=== PATIENT | male | born 1960 | race African-American/Black ===

== ENCOUNTER 2019-02-14 12:44 | Inpatient (IN) | payer OTHER ==
[2019-02-14 13:16] VITALS: BMI 22.4
--- NOTE | 2019-02-14 14:08 | HP ---
COWS - Scale Resting Pulse: 0= [place] 80 or Below Sweatin= Chills/Flushing Restless Observation: 1= Difficult to Sit Still Pupil Size: 1= Pupils >than Normal Bone or Joint Aches: 2= Severe Diffuse Aches Runny Nose/ Eye Tearin= Runny Nose/Eyes GI Upset > 30mins: 2= Nausea/Diarrhea Tremor Observation: 2= Slight Tremor Visible Yawning Observation: 1= 1-2x During Session Anxiety or Irritability: 2=Irritable/Anxious Goose Flesh Skin: 0=Smooth Skin COWS Score: 14 CIWA Score Nausea/Vomitin Muscle Tremors: 2 Anxiety: 3 Agitation: 2 Paroxysmal Sweats: 1-Minimal Palms Moist Orientation: 0-Oriented Tacttile Disturbances: 1-Very Mild Itch/Numbness Auditory Disturbances: 0-None Visual Disturbances: 1-Very Mild Sensitivity Headache: 2-Mild CIWA-Ar Total Score: 14 - Admission Criteria OASAS Guidelines: Admission for Medically Managed Detox: Requires at least one of the followin. CIWA greater than 12 2. Seizures within the past 24 hours 3. Delirium tremens within the past 24 hours 4. Hallucinations within the past 24 hours 5. Acute intervention needed for co occurring medical disorder 6. Acute intervention needed for co occurring psychiatric disorder 7. Severe withdrawal that cannot be handled at a lower level of care (continued vomiting, continued diarrhea, abnormal vital signs) requiring intravenous medication and/or fluids 8. Admitting History and Physical - Admission Chief Complaint: i need help to stop using heroin,alcohol,cocaine and marijuana History of Present Illness: this 58 years old male with heroin,alcohol,cocaine and marijuana dependence seeking detox denied seizure denied syncope weight loss History Source: Patient Limitations to Obtaining History: No Limitations - Past Medical History Gastrointestinal: Yes: GERD Heme/Onc: Yes: Cancer (of prostate [id number] ,treated with seeding and radiation) Musculoskeletal: Yes: Other (right hip arthritis ambulation with cane) - Past Surgical History Additional Past Surgical History: cancer of prostate - Smoking History Smoking history: Current every day smoker Have you smoked in the past 12 months: Yes Aproximately how many cigarettes per day: 10 - Alcohol/Substance Use Hx Alcohol Use: Yes History of Substance Use: reports: Heroin - Social History Usual Living Arrangement: Yes: Other (homeless) Occupation: un employed History of Recent Travel: No Admission ROS BHS - HPI Chief Complaint: i need help to stop using heroin,alcohol,cocaine and marijuana abused Allergies/Adverse Reactions: Allergies Allergy/AdvReac Type Severity Reaction Status Date / Time No Known Allergies Allergy Verified 02/14/19 13:06 History of Present Illness: this 58 years old male with heroin,alcohol dependence,also cocaine and marijuana abused,seeking detox,withdrawal symptom [place] seizure denied syncope ca prostate treated with seeding and radiation 2012 weight loss arthritis of right hip longest sobriety 3 and half year homeless unemployed for rehab after detox Exam Limitations: No Limitations - Ebola screening Have you traveled outside of the country in the last 21 days: No Have you had contact with anyone from an Ebola affected area: No Do you have a fever: No - Review of Systems Constitutional: Chills, Loss of Appetite, Malaise, Night Sweats, Changes in sleep, Unintentional Wgt. Loss EENT: reports: Tearing, Nose Congestion Respiratory: reports: No Symptoms reported Cardiac: reports: No Symptoms Reported GI: reports: Diarrhea, Nausea, Indigestion : reports: Other (cancer of prostate) Musculoskeletal: reports: Back Pain, Muscle Pain Integumentary: reports: Dryness Neuro: reports: Headache, Tremors Endocrine: reports: No Symptoms Reported Hematology: reports: No Symptoms Reported Psychiatric: reports: No Sypmtoms Reported, Judgement Intact, Mood/Affect Appropiate, Orientated x3 Other Systems: Reviewed and Negative Patient History - Patient Medical History Hx Anemia: No Hx Asthma: No Hx Chronic Obstructive Pulmonary Disease (COPD): No Hx Cancer: Yes (ca prostate post seeding and adiation on remission since 2012) Hx Cardiac Disorders: No Hx Congestive Heart Failure: No Hx Hypertension: No Hx Hypercholesterolemia: No Hx Pacemaker: No HX Cerebrovascular Accident: Yes Hx Seizures: No Hx Dementia: No Hx Diabetes: Yes (no med) Hx Gastrointestinal Disorders: No Hx Liver Disease: No Hx Genitourinary Disorders: No Hx Sexually Transmitted Disorders: No Hx Renal Disease (ESRD): No Hx Thyroid Disease: No Hx Human Immunodeficiency Virus (HIV): No (since 2015 negative) Hx Hepatitis C: No Hx Depression: Yes (no med) Hx Suicide Attempt: No Hx Bipolar Disorder: No Hx Schizophrenia: No Other Medical History: no sicidal,no homicidal,arthritis of rt hip ambulation with cane - Patient Surgical History Past Surgical History: No - PPD History Previous Implant?: Yes Documented Results: Positive w/o proof Implanted On Prior R Admission?: No PPD to be Administered?: No - Smoking Cessation Smoking history: Current every day smoker Have you smoked in the past 12 months: Yes Aproximately how many cigarettes per day: 20 Cigars Per Day: 0 Hx Chewing Tobacco Use: No Initiated information on smoking cessation: Yes 'Breaking Loose' booklet given: 02/14/19 - Substance & Tx. History Hx Alcohol Use: Yes Hx Substance Use: Yes Substance Use Type: Alcohol, Cocaine, Heroin, Tranquilizers Hx Substance Use Treatment: Yes (2008 [facility]) - Substances abused Alcohol Substance route: Oral Frequency: Daily Amount used: 1 pint of whiskey & 6 pk beer Age of first use: 58 Date of last use: 02/12/19 Heroin Substance route: Inhalation Frequency: Daily Amount used: 10bags Age of first use: 18 Date of last use: 02/12/19 Cocaine Substance route: Inhalation Frequency: 1-3 times last 30 days Amount used: 100$ Age of first use: 48 Date of last use: 02/12/19 Marijuana/Hashish Substance route: Smoking Frequency: 1-2 times per week Amount used: 10$ Age of first use: 18 Date of last use: 02/13/19 Admission Physical Exam BHS - Vital Signs Vital Signs: Vital Signs - 24 hr 02/14/19 13:05 Temperature 98.0 F Pulse Rate 71 Respiratory 20 Rate Blood Pressure 114/69 - Physical General Appearance: Yes: Moderate Distress, Tremorous, Irritable, Sweating, Anxious HEENTM: Yes: Normal ENT Inspection, ALEX, Pharynx Normal Respiratory: Yes: Lungs Clear, Normal Breath Sounds, No Respiratory Distress Neck: Yes: Within Normal Limits, Supple, Trachea in good position Breast: Yes: Within Normal Limits Cardiology: Yes: Within Normal Limits, Regular Rhythm, Regular Rate, S1, S2 Abdominal: Yes: Within Normal Limits, Normal Bowel Sounds, Non Tender, Flat, Soft Genitourinary: Yes: Within Normal Limits, Pain (history of cancer of prostate) Back: Yes: Muscle Spasm Musculoskeletal: Yes: Back pain, Muscle Pain Extremities: Yes: Tremors (arthritis if righ thip) Neurological: Yes: superintendent of generation II-XII NML intact, Fully Oriented, Alert, Motor Strength 5/5 Integumentary: Yes: Dry Lymphatic: Yes: Within Normal Limits - Diagnostic (1) Opioid dependence with withdrawal Current Visit: Yes Status: Acute (2) Alcohol dependence with uncomplicated withdrawal Current Visit: Yes Status: Acute (3) CA of prostate Current Visit: Yes Status: Acute (4) CVA (cerebral vascular accident) Current Visit: Yes Status: Acute (5) DM2 (diabetes mellitus, type 2) Current Visit: Yes Status: Acute (6) Arthritis of right hip Current Visit: Yes Status: Acute (7) Use of cane as ambulatory aid Current Visit: Yes Status: Acute (8) Weight loss Current Visit: Yes Status: Acute (9) Depression Current Visit: Yes Status: Acute Cleared for Admission S - Detox or Rehab [facility] Level of Care: Medically Managed Detox Regimen/Protocol: Methadone/Librium Breathalyzer - Breathalyzer Breathalyzer: 0 Urine Drug Screen - Test Device Lot number: [id number] Expiration date: 09/17/20 - Control Is test valid?: Yes - Results Drug screen NEGATIVE: No Urine drug screen results: THC-Marijuana, DALJIT-Cocaine, MOP-Opiates Inpatient Rehab Admission - Rehab Decision to Admit Inpatient rehab admission?: No
[2019-02-14] MEDS ORDERED: METHOCARBAMOL 500 MG TABLET PO PRN (14:34)
[2019-02-14] MEDS ORDERED: MAGNESIUM CITRATE 300 ML BOTTLE PO PRN (14:34)
[2019-02-14] MEDS ORDERED: cloNIDine HCL 0.1 MG TABLET PO PRN (14:34)
[2019-02-14] MEDS ORDERED: MENTHOL/PHENOL 1 EACH UD MM PRN (14:34)
[2019-02-14] MEDS ORDERED: chlordiazePOXIDE HCL 25 MG CAPSULE PO PRN (14:34)
[2019-02-14] MEDS ORDERED: ACETAMINOPHEN 325 MG TABLET (FP) PO PRN ×2 (14:34)
[2019-02-14] MEDS ORDERED: MAGNESIUM HYDROX 2400MG/30ML ORAL SUSPENSION 30 ML CUP PO PRN (14:34)
[2019-02-14] MEDS ORDERED: BISMUTH SUBSALICYLATE 262 MG/15 ML BTL PO PRN (14:34)
[2019-02-14] MEDS ORDERED: MELATONIN 5 MG TABLETS PO PRN (14:34)
[2019-02-14] MEDS ORDERED: MAG HYDROX/AL HYDROX/SIMETH 30 ML UNIT-DOSE CUP PO PRN (14:34)
[2019-02-14] MEDS ORDERED: hydrOXYzine PAMOATE 25 MG CAPSULE (FP) PO PRN (14:34)
[2019-02-14] MEDS ORDERED: METHADONE HCL 10 MG TABLET (FOR DETOX USE ONLY) PO ONE (15:10)
[2019-02-14] MEDS: NICOTINE 21 MG/24 HOURS TOPICAL PATCH TD SCH (15:30)
[2019-02-14] MEDS: chlordiazePOXIDE HCL 25 MG CAPSULE PO SCH ×2 (17:02→22:21)
[2019-02-14 17:08] LABS: MCH 33.6 pg (25.7-33.7); MCHC 34.2 g/dl (32.0-35.9); MEAN CELL VOLUME 98.3 fl (80-96); MEAN PLT VOLUME 7.9 fl (7.5-11.1); PLATELET COUNT 362 K/MM3 (134-434); RBC 4.17 M/mm3 (4.00-5.60); RDW 15.1 % (11.9-15.9); WHITE BLOOD COUNT 5.3 K/mm3 (4.0-10.0)
[2019-02-14 17:23] LABS: ALBUMIN 3.2 g/dl (3.4-5.0); BILIRUBIN,TOTAL 0.7 mg/dL (0.2-1); BLOOD UREA NITROGEN 13.9 mg/dL (7-18); CALCIUM 8.9 mg/dL (8.5-10.1); POTASSIUM 3.9 mmol/L (3.5-5.1); TOT PROT 6.3 g/dl (6.4-8.2)
[2019-02-14] MEDS: THIAMINE HCL 100 MG TABLET (FP) PO SCH (22:21)
[2019-02-15] MEDS: chlordiazePOXIDE HCL 25 MG CAPSULE PO SCH ×4 (06:14→22:12)
[2019-02-15] MEDS: TAMSULOSIN HCL 0.4 MG CAP PO SCH (08:31)
[2019-02-15] MEDS ORDERED: METHADONE HCL 5 MG TABLET (FOR DETOX USE ONLY) ONE (09:21)
[2019-02-15] MEDS ORDERED: METHADONE HCL 10 MG TABLET (FOR DETOX USE ONLY) ONE (09:21)
[2019-02-15] MEDS ORDERED: METHADONE (DETOX) 20 MG, METHADONE (DETOX) 5 MG PO ONE (10:00)
--- NOTE | 2019-02-15 10:04 | PN ---
S CIWA - CIWA Score Nausea/Vomitin-No Nausea/No Vomiting Muscle Tremors: 2 Anxiety: 3 Agitation: 1-Slight > Activity Paroxysmal Sweats: 3 Orientation: 0-Oriented Tacttile Disturbances: 0-None Auditory Disturbances: 0-None Visual Disturbances: 0-None Headache: 2-Mild CIWA-Ar Total Score: 11 BHS COWS - Scale Resting Pulse: 0= [place] 80 or Below Sweatin= Beads of Sweat on Face Restless Observation: 1= Difficult to Sit Still Pupil Size: 0= Normal to Room Light Bone or Joint Aches: 2= Severe Diffuse Aches Runny Nose/ Eye Tearin= None GI Upset > 30mins: 0= None Tremor Observation of Outstretched Hands: 2= Slight Tremor Visible Yawning Observation: 1= 1-2x During Session Anxiety or Irritability: 2=Irritable/Anxious Goose Flesh Skin: 0=Smooth Skin COWS Score: 11 S Progress Note (SOAP) Subjective: c/o shakes, anxiety, headache, muscle aches, and sweats. Objective: 02/15/19 10:02 Vital Signs 02/15/19 02/15/19 02/15/19 03:30 06:39 09:10 Temperature 98.8 F 96.9 F L Pulse Rate 50 L 55 L Respiratory 18 18 18 Rate Blood Pressure 108/60 109/71 Laboratory Last Values WBC 5.3 K/mm3 (4.0-10.0) 02/14/19 15:40 RBC 4.17 M/mm3 (4.00-5.60) 02/14/19 15:40 Hgb 14.0 GM/dL (11.7-16.9) 02/14/19 15:40 Hct 41.0 % (35.4-49) 02/14/19 15:40 MCV 98.3 fl (80-96) H 02/14/19 15:40 MCH 33.6 pg (25.7-33.7) 02/14/19 15:40 MCHC 34.2 g/dl (32.0-35.9) 02/14/19 15:40 RDW 15.1 % (11.9-15.9) 02/14/19 15:40 Plt Count 362 K/MM3 (134-434) 02/14/19 15:40 MPV 7.9 fl (7.5-11.1) 02/14/19 15:40 Sodium 139 mmol/L (136-145) 02/14/19 15:40 Potassium 3.9 mmol/L (3.5-5.1) 02/14/19 15:40 Chloride 108 mmol/L (98-107) H 02/14/19 15:40 Carbon Dioxide 26 mmol/L (21-32) 02/14/19 15:40 Anion Gap 5 MMOL/L (8-16) L 02/14/19 15:40 BUN 13.9 mg/dL (7-18) 02/14/19 15:40 Creatinine 1.0 mg/dL (0.55-1.3) 02/14/19 15:40 Est GFR (CKD-EPI)AfAm 95.73 02/14/19 15:40 Est GFR (CKD-EPI)NonAf 82.60 02/14/19 15:40 POC Glucometer 116 UNITS (80-120) 02/15/19 06:25 Random Glucose 129 mg/dL (74-106) H 02/14/19 15:40 Calcium 8.9 mg/dL (8.5-10.1) 02/14/19 15:40 Total Bilirubin 0.7 mg/dL (0.2-1) 02/14/19 15:40 AST 41 U/L (15-37) H 02/14/19 15:40 ALT 50 U/L (13-61) 02/14/19 15:40 Alkaline Phosphatase 85 U/L (45-117) 02/14/19 15:40 Total Protein 6.3 g/dl (6.4-8.2) L 02/14/19 15:40 Albumin 3.2 g/dl (3.4-5.0) L 02/14/19 15:40 Labs noted. Assessment: 02/15/19 10:02 AOx3, in no acute respiratory distress. Full rom, ambulating in the unit. Withdrawal symptoms. Plan: continue detox.
[2019-02-15] MEDS: ASPIRIN COATED 81 MG TABLET.EC PO SCH (10:31)
[2019-02-15] MEDS: CLOPIDOGREL BISULFATE 75 MG TABLET (FP) PO SCH (10:31)
[2019-02-15] MEDS: PRENATAL VITAMINS W/ FOLIC ACID TABLET (FP) PO SCH (10:31)
[2019-02-15] MEDS: NICOTINE 21 MG/24 HOURS TOPICAL PATCH TD SCH (10:35)
--- NOTE | 2019-02-15 12:10 | CONSULT ---
[facility] Psychiatric Consult - Data Date of interview: 02/15/19 Admission source: [facility] Identifying data: First [facility] visit and admission to [address] [place] [address] for this 58 y/o AA male elf-referred for detoxification treatment. ASA issues : opioid, alcohol, cannabis, crack/cocaine, nicotine. 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 Substance Abuse History: Discussed with the patient. Details are concordant with current [facility] report as follows : Smoking history: Current every day smoker. Have you smoked in the past 12 months: Yes. Aproximately how many cigarettes per day: 20. Cigars Per Day: 0. Hx Chewing Tobacco Use: No. Initiated information on smoking cessation: Yes. 'Breaking Loose' booklet given: . - Substance & Tx. History. Hx Alcohol Use: Yes. Hx Substance Use: Yes. Substance Use Type: Alcohol, Cocaine, Heroin, Tranquilizers. Hx Substance Use Treatment: Yes (2008 [facility]). - Substances abused. Alcohol. Substance route: Oral. Frequency: Daily. Amount used: 1 pint of whiskey & 6 pk beer. Age of first use: 58. Date of last use: 02/12/19. Heroin. Substance route : Inhalation. Frequency: Daily. Amount used: 10bags. Age of first use: 18. Date of last use: 02/12/19. Cocaine. Substance route: Inhalation. Frequency: 1-3 times last 30 days. Amount used: 100$. Age of first use: 48. Date of last use: 02/12/19. Marijuana/Hashish. Substance route: Smoking. Frequency: 1-2 times per week. Amount used: 10$. Age of first use: 18. Date of last use: 02/13/19 Medical History: Medical profile is remarkable for GERD, diabetes mellitus, hypertension, arthritis of right hip, antecedent of CVA with right sided weakness, past treatment for prostatic cancer (seeding + radiation) in 2012, dyslipidemia and benign prostatic hyperplasia (BPH). Psychiatric History: Patient denies history of psychiatric hospitalizations, OPD care or suicide attempts. Physical/Sexual Abuse/Trauma History: Severe stressors : recent of ( lost to opioid overdose less than two months ago), homelessness, unemployment, incarceration for past four years (released on 01/24/19 only to discover that his had and buried a month earlier without his knowledge), lack of a support network, serious medical illnesses and addictions. Additional Comment: Urine drug screen results: THC-Marijuana, DALJIT-Cocaine, MOP- Opiates. Noted. Mental Status Exam - Mental Status Exam Alert and Oriented to: Time, Place, Person Cognitive Function: Good Patient Appearance: Unkempt, Disheveled Mood: Nervous, Withdrawn, Hopeful Affect: Mood Congruent, Constricted Patient Behavior: Fatigued, Cooperative (friendly) Speech Pattern: Clear, Appropriate Voice Loudness: Normal Thought Process: Intact, Goal Oriented Thought Disorder: Not Present Hallucinations: Denies Suicidal Ideation: Denies Homicidal Ideation: Denies Insight/Judgement: Fair Sleep: Well Appetite: Fair, Weight loss Gait/Station: Other (unsteady gait due to CVA ; ambulates with a cane) Psychiatric Findings - Problem List ([place] 1, 2,3) (1) Alcohol dependence with uncomplicated withdrawal Current Visit: Yes Status: Acute (2) Opioid dependence with withdrawal Current Visit: Yes Status: Acute (3) Cocaine abuse Current Visit: Yes Status: Chronic (4) Cannabis abuse Current Visit: Yes Status: Chronic (5) Nicotine abuse Current Visit: Yes Status: Chronic (6) Substance induced mood disorder Current Visit: Yes Status: Chronic (7) Bereavement Current Visit: Yes Status: Acute - Initial Treatment Plan Initial Treatment Plan: Psychoeducation. Empathy and support. Motivational counseling provided in this session. AA/NA meetings. Sleep hygiene. Falls precautions. Detoxification in progress. Rehabilitation recommended. Observation.
--- NOTE | 2019-02-15 13:38 | EKG ---
Test Reason : Blood Pressure : / mmHG Vent. Rate : 053 BPM Atrial Rate : 053 BPM P-R Int : 140 ms QRS Dur : 102 ms QT Int : 438 ms P-R-T Axes : 061 098 058 degrees QTc Int : 410 ms SINUS BRADYCARDIA RIGHTWARD AXIS BORDERLINE ECG NO PREVIOUS ECGS AVAILABLE Confirmed by MD CODY, MELE ([id number]) on 02/15/2019 1:37:32 PM Referred By: Confirmed By:MELE ROSS MD
[2019-02-15 17:16] LABS: PH,URINE 5.5 (5.0-8.0); URINE APPEARANCE CLEAR; URINE BILIRUBIN NEGATIVE (NEGATIVE); URINE COLOR YELLOW; URINE GLUCOSE (UA) NEGATIVE (NEGATIVE); URINE KETONE TRACE (NEGATIVE); URINE LEUK ESTERASE NEGATIVE (NEGATIVE); URINE NITRITE NEGATIVE (NEGATIVE); URINE PROTEIN NEGATIVE (NEGATIVE)
[2019-02-15] MEDS: THIAMINE HCL 100 MG TABLET (FP) PO SCH (22:12)
[2019-02-16] MEDS: chlordiazePOXIDE HCL 25 MG CAPSULE PO SCH ×4 (05:33→22:04)
[2019-02-16] MEDS: TAMSULOSIN HCL 0.4 MG CAP PO SCH (09:29)
[2019-02-16] MEDS ORDERED: METHADONE HCL 10 MG TABLET (FOR DETOX USE ONLY) PO ONE (10:00)
[2019-02-16] MEDS: NICOTINE 21 MG/24 HOURS TOPICAL PATCH TD SCH (10:22)
[2019-02-16] MEDS: PRENATAL VITAMINS W/ FOLIC ACID TABLET (FP) PO SCH (10:29)
[2019-02-16] MEDS: ASPIRIN COATED 81 MG TABLET.EC PO SCH (10:29)
[2019-02-16] MEDS: CLOPIDOGREL BISULFATE 75 MG TABLET (FP) PO SCH (10:29)
--- NOTE | 2019-02-16 10:52 | PN ---
S CIWA - CIWA Score Nausea/Vomitin-Mild Nausea/No Vomiting Muscle Tremors: 2 Anxiety: 2 Agitation: 2 Paroxysmal Sweats: 1-Minimal Palms Moist Orientation: 0-Oriented Tacttile Disturbances: 1-Very Mild Itch/Numbness Auditory Disturbances: 0-None Visual Disturbances: 0-None Headache: 0-None Present CIWA-Ar Total Score: 9 BHS COWS - Scale Resting Pulse: 0= [place] 80 or Below Sweatin= Chills/Flushing Restless Observation: 0= Sits Still Pupil Size: 1= Pupils >than Normal Bone or Joint Aches: 2= Severe Diffuse Aches Runny Nose/ Eye Tearin= None GI Upset > 30mins: 2= Nausea/Diarrhea Tremor Observation of Outstretched Hands: 2= Slight Tremor Visible Yawning Observation: 0= None Anxiety or Irritability: 1=Feels Anxious/Irritable Goose Flesh Skin: 0=Smooth Skin COWS Score: 9 S Progress Note (SOAP) Subjective: 58 years old male admitted on 02/14/19 for alcohol and opiate withdrawal sx management treating with librium and methadone detox regimen ate breakfast tolerated food and fluid well ambulating with cane steady gait sweating showered Objective: 02/16/19 10:51 Vital Signs Temperature 96.9 F L 02/16/19 09:08 Pulse Rate 72 02/16/19 09:08 Respiratory Rate 18 02/16/19 09:08 Blood Pressure 105/59 L 02/16/19 09:08 O2 Sat by Pulse Oximetry (%) Laboratory Last Values WBC 5.3 K/mm3 (4.0-10.0) 02/14/19 15:40 RBC 4.17 M/mm3 (4.00-5.60) 02/14/19 15:40 Hgb 14.0 GM/dL (11.7-16.9) 02/14/19 15:40 Hct 41.0 % (35.4-49) 02/14/19 15:40 MCV 98.3 fl (80-96) H 02/14/19 15:40 MCH 33.6 pg (25.7-33.7) 02/14/19 15:40 MCHC 34.2 g/dl (32.0-35.9) 02/14/19 15:40 RDW 15.1 % (11.9-15.9) 02/14/19 15:40 Plt Count 362 K/MM3 (134-434) 02/14/19 15:40 MPV 7.9 fl (7.5-11.1) 02/14/19 15:40 Sodium 139 mmol/L (136-145) 02/14/19 15:40 Potassium 3.9 mmol/L (3.5-5.1) 02/14/19 15:40 Chloride 108 mmol/L (98-107) H 02/14/19 15:40 Carbon Dioxide 26 mmol/L (21-32) 02/14/19 15:40 Anion Gap 5 MMOL/L (8-16) L 02/14/19 15:40 BUN 13.9 mg/dL (7-18) 02/14/19 15:40 Creatinine 1.0 mg/dL (0.55-1.3) 02/14/19 15:40 Est GFR (CKD-EPI)AfAm 95.73 02/14/19 15:40 Est GFR (CKD-EPI)NonAf 82.60 02/14/19 15:40 POC Glucometer 110 UNITS (80-120) 02/15/19 16:29 Random Glucose 129 mg/dL (74-106) H 02/14/19 15:40 Calcium 8.9 mg/dL (8.5-10.1) 02/14/19 15:40 Total Bilirubin 0.7 mg/dL (0.2-1) 02/14/19 15:40 AST 41 U/L (15-37) H 02/14/19 15:40 ALT 50 U/L (13-61) 02/14/19 15:40 Alkaline Phosphatase 85 U/L (45-117) 02/14/19 15:40 Total Protein 6.3 g/dl (6.4-8.2) L 02/14/19 15:40 Albumin 3.2 g/dl (3.4-5.0) L 02/14/19 15:40 Urine Color Yellow 02/15/19 11:34 Urine Appearance Clear 02/15/19 11:34 Urine pH 5.5 (5.0-8.0) 02/15/19 11:34 Ur Specific [place] 1.033 (1.010-1.035) 02/15/19 11:34 Urine Protein Negative (NEGATIVE) 02/15/19 11:34 Urine Glucose (UA) Negative (NEGATIVE) 02/15/19 11:34 Urine Ketones Trace (NEGATIVE) H 02/15/19 11:34 Urine Blood Negative (NEGATIVE) 02/15/19 11:34 Urine Nitrite Negative (NEGATIVE) 02/15/19 11:34 Urine Bilirubin Negative (NEGATIVE) 02/15/19 11:34 Urine Urobilinogen 1.0 mg/dL (0.2-1.0) 02/15/19 11:34 Ur Leukocyte Esterase Negative (NEGATIVE) 02/15/19 11:34 RPR Titer Nonreactive (NONREACTIVE) 02/14/19 15:40 lab noted Assessment: 02/16/19 10:52 alcohol and opiate withdrawal Plan: librium and methadone regimens
[2019-02-16] MEDS: THIAMINE HCL 100 MG TABLET (FP) PO SCH (22:04)
[2019-02-17] MEDS ORDERED: chlordiazePOXIDE HCL 10 MG CAPSULE PO PRN
[2019-02-17] MEDS: chlordiazePOXIDE HCL 10 MG CAPSULE PO SCH ×4 (06:24→22:06)
[2019-02-17] MEDS ORDERED: METHADONE HCL 10 MG TABLET (FOR DETOX USE ONLY) ONE (08:48)
[2019-02-17] MEDS ORDERED: METHADONE HCL 5 MG TABLET (FOR DETOX USE ONLY) ONE (08:48)
[2019-02-17] MEDS: TAMSULOSIN HCL 0.4 MG CAP PO SCH (09:04)
[2019-02-17] MEDS ORDERED: METHADONE (DETOX) 10 MG, METHADONE (DETOX) 5 MG PO ONE (10:00)
[2019-02-17] MEDS: CLOPIDOGREL BISULFATE 75 MG TABLET (FP) PO SCH (10:03)
[2019-02-17] MEDS: NICOTINE 21 MG/24 HOURS TOPICAL PATCH TD SCH (10:04)
[2019-02-17] MEDS: ASPIRIN COATED 81 MG TABLET.EC PO SCH (10:04)
[2019-02-17] MEDS: PRENATAL VITAMINS W/ FOLIC ACID TABLET (FP) PO SCH (10:04)
--- NOTE | 2019-02-17 10:20 | PN ---
[facility] CIWA - CIWA Score Nausea/Vomitin-Mild Nausea/No Vomiting Muscle Tremors: 2 Anxiety: 2 Agitation: 2 Paroxysmal Sweats: 1-Minimal Palms Moist Orientation: 0-Oriented Tacttile Disturbances: 0-None Auditory Disturbances: 0-None Visual Disturbances: 0-None Headache: 0-None Present CIWA-Ar Total Score: 8 BHS COWS - Scale Resting Pulse: 0= [place] 80 or Below Sweatin= Chills/Flushing Restless Observation: 0= Sits Still Pupil Size: 1= Pupils >than Normal Bone or Joint Aches: 1= Mild Discomfort Runny Nose/ Eye Tearin= Nasal Congestion GI Upset > 30mins: 1= Stomach Cramp Tremor Observation of Outstretched Hands: 1= Tremor [place], Not Seen Yawning Observation: 1= 1-2x During Session Anxiety or Irritability: 1=Feels Anxious/Irritable Goose Flesh Skin: 0=Smooth Skin COWS Score: 8 [facility] Progress Note (SOAP) Subjective: 58 years old male admitted on 02/14/19 for alcohol and opiate withdrawal sx management treating with libiurm and methadone detox regimens ambulating with cane steady gait encourage oral fluid and change position slowly Objective: 02/17/19 10:19 Vital Signs Temperature 96.6 F L 02/17/19 09:25 Pulse Rate 59 L 02/17/19 09:25 Respiratory Rate 16 02/17/19 09:25 Blood Pressure 110/60 02/17/19 09:25 O2 Sat by Pulse Oximetry (%) Laboratory Last Values WBC 5.3 K/mm3 (4.0-10.0) 02/14/19 15:40 RBC 4.17 M/mm3 (4.00-5.60) 02/14/19 15:40 Hgb 14.0 GM/dL (11.7-16.9) 02/14/19 15:40 Hct 41.0 % (35.4-49) 02/14/19 15:40 MCV 98.3 fl (80-96) H 02/14/19 15:40 MCH 33.6 pg (25.7-33.7) 02/14/19 15:40 MCHC 34.2 g/dl (32.0-35.9) 02/14/19 15:40 RDW 15.1 % (11.9-15.9) 02/14/19 15:40 Plt Count 362 K/MM3 (134-434) 02/14/19 15:40 MPV 7.9 fl (7.5-11.1) 02/14/19 15:40 Sodium 139 mmol/L (136-145) 02/14/19 15:40 Potassium 3.9 mmol/L (3.5-5.1) 02/14/19 15:40 Chloride 108 mmol/L (98-107) H 02/14/19 15:40 Carbon Dioxide 26 mmol/L (21-32) 02/14/19 15:40 Anion Gap 5 MMOL/L (8-16) L 02/14/19 15:40 BUN 13.9 mg/dL (7-18) 02/14/19 15:40 Creatinine 1.0 mg/dL (0.55-1.3) 02/14/19 15:40 Est GFR (CKD-EPI)AfAm 95.73 02/14/19 15:40 Est GFR (CKD-EPI)NonAf 82.60 02/14/19 15:40 POC Glucometer 113 UNITS (80-120) 02/16/19 16:20 Random Glucose 129 mg/dL (74-106) H 02/14/19 15:40 Calcium 8.9 mg/dL (8.5-10.1) 02/14/19 15:40 Total Bilirubin 0.7 mg/dL (0.2-1) 02/14/19 15:40 AST 41 U/L (15-37) H 02/14/19 15:40 ALT 50 U/L (13-61) 02/14/19 15:40 Alkaline Phosphatase 85 U/L (45-117) 02/14/19 15:40 Total Protein 6.3 g/dl (6.4-8.2) L 02/14/19 15:40 Albumin 3.2 g/dl (3.4-5.0) L 02/14/19 15:40 Urine Color Yellow 02/15/19 11:34 Urine Appearance Clear 02/15/19 11:34 Urine pH 5.5 (5.0-8.0) 02/15/19 11:34 Ur Specific [place] 1.033 (1.010-1.035) 02/15/19 11:34 Urine Protein Negative (NEGATIVE) 02/15/19 11:34 Urine Glucose (UA) Negative (NEGATIVE) 02/15/19 11:34 Urine Ketones Trace (NEGATIVE) H 02/15/19 11:34 Urine Blood Negative (NEGATIVE) 02/15/19 11:34 Urine Nitrite Negative (NEGATIVE) 02/15/19 11:34 Urine Bilirubin Negative (NEGATIVE) 02/15/19 11:34 Urine Urobilinogen 1.0 mg/dL (0.2-1.0) 02/15/19 11:34 Ur Leukocyte Esterase Negative (NEGATIVE) 02/15/19 11:34 RPR Titer Nonreactive (NONREACTIVE) 02/14/19 15:40 lab noted Assessment: 02/17/19 10:19 alcohol and opiate withdrawal Plan: librium and methadone regimens
[2019-02-17] MEDS: THIAMINE HCL 100 MG TABLET (FP) PO SCH (22:06)
[2019-02-18] MEDS: chlordiazePOXIDE HCL 10 MG CAPSULE PO SCH ×2 (05:20→16:39)
[2019-02-18] MEDS: TAMSULOSIN HCL 0.4 MG CAP PO SCH (09:35)
[2019-02-18] MEDS ORDERED: METHADONE HCL 10 MG TABLET (FOR DETOX USE ONLY) PO ONE (10:00)
[2019-02-18] MEDS: ASPIRIN COATED 81 MG TABLET.EC PO SCH (10:29)
[2019-02-18] MEDS: CLOPIDOGREL BISULFATE 75 MG TABLET (FP) PO SCH (10:29)
[2019-02-18] MEDS: NICOTINE 21 MG/24 HOURS TOPICAL PATCH TD SCH (10:30)
[2019-02-18] MEDS: PRENATAL VITAMINS W/ FOLIC ACID TABLET (FP) PO SCH (10:30)
--- NOTE | 2019-02-18 10:49 | PN ---
[facility] CIWA - CIWA Score Nausea/Vomitin-No Nausea/No Vomiting Muscle Tremors: None Anxiety: 2 Agitation: 0-Normal Activity Paroxysmal Sweats: 1-Minimal Palms Moist Orientation: 0-Oriented Tacttile Disturbances: 0-None Auditory Disturbances: 0-None Visual Disturbances: 0-None Headache: 0-None Present CIWA-Ar Total Score: 3 S COWS - Scale Resting Pulse: 0= [place] 80 or Below Sweatin= No chills or Flushing Restless Observation: 0= Sits Still Pupil Size: 0= Normal to Room Light Bone or Joint Aches: 1= Mild Discomfort Runny Nose/ Eye Tearin= None GI Upset > 30mins: 0= None Tremor Observation of Outstretched Hands: 0= None Yawning Observation: 0= None Anxiety or Irritability: 2=Irritable/Anxious Goose Flesh Skin: 0=Smooth Skin COWS Score: 3 [facility] Progress Note (SOAP) Subjective: c/o mild withdrawal symptoms. Objective: 02/18/19 10:41 Vital Signs 02/18/19 02/18/19 02/18/19 03:30 05:55 09:08 Temperature 99.1 F 99.0 F Pulse Rate 55 L 54 L Respiratory 16 18 16 Rate Blood Pressure 121/59 L 109/66 Laboratory Last Values WBC 5.3 K/mm3 (4.0-10.0) 02/14/19 15:40 RBC 4.17 M/mm3 (4.00-5.60) 02/14/19 15:40 Hgb 14.0 GM/dL (11.7-16.9) 02/14/19 15:40 Hct 41.0 % (35.4-49) 02/14/19 15:40 MCV 98.3 fl (80-96) H 02/14/19 15:40 MCH 33.6 pg (25.7-33.7) 02/14/19 15:40 MCHC 34.2 g/dl (32.0-35.9) 02/14/19 15:40 RDW 15.1 % (11.9-15.9) 02/14/19 15:40 Plt Count 362 K/MM3 (134-434) 02/14/19 15:40 MPV 7.9 fl (7.5-11.1) 02/14/19 15:40 Sodium 139 mmol/L (136-145) 02/14/19 15:40 Potassium 3.9 mmol/L (3.5-5.1) 02/14/19 15:40 Chloride 108 mmol/L (98-107) H 02/14/19 15:40 Carbon Dioxide 26 mmol/L (21-32) 02/14/19 15:40 Anion Gap 5 MMOL/L (8-16) L 02/14/19 15:40 BUN 13.9 mg/dL (7-18) 02/14/19 15:40 Creatinine 1.0 mg/dL (0.55-1.3) 02/14/19 15:40 Est GFR (CKD-EPI)AfAm 95.73 02/14/19 15:40 Est GFR (CKD-EPI)NonAf 82.60 02/14/19 15:40 POC Glucometer 110 UNITS (80-120) 02/18/19 05:22 Random Glucose 129 mg/dL (74-106) H 02/14/19 15:40 Calcium 8.9 mg/dL (8.5-10.1) 02/14/19 15:40 Total Bilirubin 0.7 mg/dL (0.2-1) 02/14/19 15:40 AST 41 U/L (15-37) H 02/14/19 15:40 ALT 50 U/L (13-61) 02/14/19 15:40 Alkaline Phosphatase 85 U/L (45-117) 02/14/19 15:40 Total Protein 6.3 g/dl (6.4-8.2) L 02/14/19 15:40 Albumin 3.2 g/dl (3.4-5.0) L 02/14/19 15:40 Urine Color Yellow 02/15/19 11:34 Urine Appearance Clear 02/15/19 11:34 Urine pH 5.5 (5.0-8.0) 02/15/19 11:34 Ur Specific [place] 1.033 (1.010-1.035) 02/15/19 11:34 Urine Protein Negative (NEGATIVE) 02/15/19 11:34 Urine Glucose (UA) Negative (NEGATIVE) 02/15/19 11:34 Urine Ketones Trace (NEGATIVE) H 02/15/19 11:34 Urine Blood Negative (NEGATIVE) 02/15/19 11:34 Urine Nitrite Negative (NEGATIVE) 02/15/19 11:34 Urine Bilirubin Negative (NEGATIVE) 02/15/19 11:34 Urine Urobilinogen 1.0 mg/dL (0.2-1.0) 02/15/19 11:34 Ur Leukocyte Esterase Negative (NEGATIVE) 02/15/19 11:34 RPR Titer Nonreactive (NONREACTIVE) 02/14/19 15:40 Labs noted. Assessment: 02/18/19 10:44 AOX3, in no respiratory distress. Full ROM, ambulating in the unit with a cane. Mild Withdrawal symptoms. For d/c tomorrow. Plan: continue detox. D/C in AM.
--- NOTE | 2019-02-18 13:31 | DS ---
[facility] Detox Discharge Summary Admission Date: 02/14/19 Discharge Date: 02/18/19 - History Present History: Alcohol Dependence, Cannabis Dependence, Cocaine Dependence, Opioid Dependence Additional Comments: Pt is medically cleared and is discharged today to [facility] rehab for continued management. As per, MANAGER HVAC Jeovany, she discussed with the clinical cell feed department supervisor, and the patient to go to the rehab today as pt requested. As per GRIFFIN Thayer, pt agreed to go to the rehab instead of 02/19/2019. Pt is encouraged to follow through with the rehab protocol. Pt verbalized understanding of the information given. Pt is alert and oriented x3 and in no acute respiratory distress. Pertinent Past History: h/o DM, GERD, alcohol, cocaine, heroin, and cannabis use disorder. - Physical Exam Results Vital Signs: Vital Signs Temperature 98.8 F 02/18/19 13:10 Pulse Rate 59 L 02/18/19 13:10 Respiratory Rate 18 02/18/19 13:10 Blood Pressure 110/59 L 02/18/19 13:10 O2 Sat by Pulse Oximetry (%) Vital Signs 02/18/19 02/18/19 02/18/19 05:55 09:08 13:10 Temperature 99.1 F 99.0 F 98.8 F Pulse Rate 55 L 54 L 59 L Respiratory 18 16 18 Rate Blood Pressure 121/59 L 109/66 110/59 L Laboratory Last Values WBC 5.3 K/mm3 (4.0-10.0) 02/14/19 15:40 RBC 4.17 M/mm3 (4.00-5.60) 02/14/19 15:40 Hgb 14.0 GM/dL (11.7-16.9) 02/14/19 15:40 Hct 41.0 % (35.4-49) 02/14/19 15:40 MCV 98.3 fl (80-96) H 02/14/19 15:40 MCH 33.6 pg (25.7-33.7) 02/14/19 15:40 MCHC 34.2 g/dl (32.0-35.9) 02/14/19 15:40 RDW 15.1 % (11.9-15.9) 02/14/19 15:40 Plt Count 362 K/MM3 (134-434) 02/14/19 15:40 MPV 7.9 fl (7.5-11.1) 02/14/19 15:40 Sodium 139 mmol/L (136-145) 02/14/19 15:40 Potassium 3.9 mmol/L (3.5-5.1) 02/14/19 15:40 Chloride 108 mmol/L (98-107) H 02/14/19 15:40 Carbon Dioxide 26 mmol/L (21-32) 02/14/19 15:40 Anion Gap 5 MMOL/L (8-16) L 02/14/19 15:40 BUN 13.9 mg/dL (7-18) 02/14/19 15:40 Creatinine 1.0 mg/dL (0.55-1.3) 02/14/19 15:40 Est GFR (CKD-EPI)AfAm 95.73 02/14/19 15:40 Est GFR (CKD-EPI)NonAf 82.60 02/14/19 15:40 POC Glucometer 110 UNITS (80-120) 02/18/19 05:22 Random Glucose 129 mg/dL (74-106) H 02/14/19 15:40 Calcium 8.9 mg/dL (8.5-10.1) 02/14/19 15:40 Total Bilirubin 0.7 mg/dL (0.2-1) 02/14/19 15:40 AST 41 U/L (15-37) H 02/14/19 15:40 ALT 50 U/L (13-61) 02/14/19 15:40 Alkaline Phosphatase 85 U/L (45-117) 02/14/19 15:40 Total Protein 6.3 g/dl (6.4-8.2) L 02/14/19 15:40 Albumin 3.2 g/dl (3.4-5.0) L 02/14/19 15:40 Urine Color Yellow 02/15/19 11:34 Urine Appearance Clear 02/15/19 11:34 Urine pH 5.5 (5.0-8.0) 02/15/19 11:34 Ur Specific [place] 1.033 (1.010-1.035) 02/15/19 11:34 Urine Protein Negative (NEGATIVE) 02/15/19 11:34 Urine Glucose (UA) Negative (NEGATIVE) 02/15/19 11:34 Urine Ketones Trace (NEGATIVE) H 02/15/19 11:34 Urine Blood Negative (NEGATIVE) 02/15/19 11:34 Urine Nitrite Negative (NEGATIVE) 02/15/19 11:34 Urine Bilirubin Negative (NEGATIVE) 02/15/19 11:34 Urine Urobilinogen 1.0 mg/dL (0.2-1.0) 02/15/19 11:34 Ur Leukocyte Esterase Negative (NEGATIVE) 02/15/19 11:34 RPR Titer Nonreactive (NONREACTIVE) 02/14/19 15:40 Labs noted. Pertinent Admission Physical Exam Findings: withdrawal symptoms. - Treatment Hospital Course: Detox Protocol Followed, Detoxed Safely, Responded well, Discharged Condition Good, Rehab Referral Accepted Patient has Accepted a Rehab Referral to: [facility]. - Medication Discharge Medications: Ambulatory Orders Aspirin Coated [Ecotrin -] 81 mg PO DAILY 02/14/19 Clopidogrel Bisulfate [Plavix] 75 mg PO DAILY 02/14/19 Multivitamins [Multivit ([facility] Formulary)] 1 tab PO DAILY 02/14/19 Tamsulosin HCl [Flomax] 0.4 mg PO DAILY 02/14/19 Naloxone HCl [Narcan] 4 mg NS ASDIR PRN #1 spray 02/16/19 - Diagnosis (1) Alcohol dependence with uncomplicated withdrawal Current Visit: Yes Status: Acute (2) Arthritis of right hip Current Visit: Yes Status: Acute (3) CA of prostate Current Visit: Yes Status: Acute (4) CVA (cerebral vascular accident) Current Visit: Yes Status: Acute (5) DM2 (diabetes mellitus, type 2) Current Visit: Yes Status: Acute (6) Opioid dependence with withdrawal Current Visit: Yes Status: Acute (7) Use of cane as ambulatory aid Current Visit: Yes Status: Acute (8) Cannabis abuse Current Visit: Yes Status: Chronic (9) Cocaine abuse Current Visit: Yes Status: Chronic (10) Nicotine abuse Current Visit: Yes Status: Chronic - AMA Did Patient Leave Against Medical Advice: No
[2019-02-18] MEDS: THIAMINE HCL 100 MG TABLET (FP) PO SCH (22:35)
[2019-02-19] MEDS ORDERED: chlordiazePOXIDE HCL 10 MG CAPSULE PO ONE (05:00)
[2019-02-19] MEDS ORDERED: METHADONE HCL 5 MG TABLET (FOR DETOX USE ONLY) PO ONE (06:00)
[2019-02-19] MEDS: TAMSULOSIN HCL 0.4 MG CAP PO SCH (09:12)
[2019-02-19 09:26] VITALS: BP 104/63; PULSE 62; TEMP 97
[2019-02-19] MEDS: CLOPIDOGREL BISULFATE 75 MG TABLET (FP) PO SCH (10:12)
[2019-02-19] MEDS: ASPIRIN COATED 81 MG TABLET.EC PO SCH (10:12)
[2019-02-19] MEDS: PRENATAL VITAMINS W/ FOLIC ACID TABLET (FP) PO SCH (10:12)
[2019-02-19] MEDS: NICOTINE 21 MG/24 HOURS TOPICAL PATCH TD SCH (10:13)
--- NOTE | 2019-02-19 10:30 | PN ---
[facility]EVE Progress Note Note: 58 years old male admitted on 02/14/19 for alcohol and opiate withdrawal sx management treated with librium and methadone detox regimens patient has completed the detox regimens and rehab available for Mr. Fagan
== END 2019-02-19 11:00 | disposition other institution (70) | DRG 773 ==
LOC: YASAS 12:44 → Y3N 14:45
PROVIDERS: ADMIT Allergy & Immunology; ATTEND Allergy & Immunology
PROC: HZ2ZZZZ Detoxification Services for Substance Abuse Treatment (ICD-10-PCS; principal; 2019-02-14)
DX: F11.23 Opioid dependence with withdrawal (principal); F10.230 Alcohol dependence with withdrawal, uncomplicated; F14.10 Cocaine abuse, uncomplicated; F12.10 Cannabis abuse, uncomplicated; F19.24 Other psychoactive substance dependence with psychoactive substance-induced mood disorder; F32.9 Major depressive disorder, single episode, unspecified; I10 Essential (primary) hypertension; E11.9 Type 2 diabetes mellitus without complications; M16.11 Unilateral primary osteoarthritis, right hip; K21.9 Gastro-esophageal reflux disease without esophagitis; E78.5 Hyperlipidemia, unspecified; R63.4 Abnormal weight loss; Z85.46 Personal history of malignant neoplasm of prostate; Z86.73 Personal history of transient ischemic attack (TIA), and cerebral infarction without residual deficits; Z63.4 Disappearance and death of family member; R26.2 Difficulty in walking, not elsewhere classified; Z99.89 Dependence on other enabling machines and devices
CPT/HCPCS: 36415; 71045-TC-FY; 80053; 81003; 82962; 85027; 86593; 93005; 93010

== ENCOUNTER 2019-02-19 11:04 | Inpatient (IN) | payer OTHER ==
--- NOTE | 2019-02-19 10:11 | HP ---
[facility] Rehab Assess/Revision - Admission History Admitted to Rehab from: [facility] Date of Admission to Rehab: 02/18/19 - Findings Detox History & Physical reviewed: Yes Concur with findings: Yes Comments/Additional Findings: transferred from detox to rehab admission as per protocol Inpatient Rehab Admission - Rehab Decision to Admit Inpatient rehab admission?: Yes - Initial Determination Are CD services needed?: Yes Free of communicable disease: Yes Not in need of hospitalization: Yes - Rehab Admission Criteria Previous failed treatment: Yes Poor recovery environment: Yes Comorbidities: Yes Lacks judgement: Yes Patient is meeting Inpatient Rehab admission criteria:: Yes
[~2019-02-19 11:04] MED LIST: ACETAMINOPHEN 325 MG TABLET (FP) PO PRN; LOPERAMIDE HCL 2 MG CAPSULE PO PRN; MAG HYDROX/AL HYDROX/SIMETH 30 ML UNIT-DOSE CUP PO PRN; MAGNESIUM CITRATE 300 ML BOTTLE PO PRN; MAGNESIUM HYDROX 2400MG/30ML ORAL SUSPENSION 30 ML CUP PO PRN; MENTHOL/PHENOL 1 EACH UD MM PRN; NICOTINE POLACRILEX 4 MG GUM BC PRN; P-EPHED 60MG/TRIPROLIDI 2.5MG TABLET PO PRN; guaiFENesin 200 MG/10 ML 10 ML UNIT-DOSE CUPS PO PRN
--- NOTE | 2019-02-19 17:51 | PN ---
[facility] Progress Note Note: Patient is a 58 years old male with heroin,alcohol,cocaine and marijuana dependence. Admitted to rehab 02/18/19. Laboratory Tests 02/19/19 16:58 POC Glucometer 88 Vital Signs (72 hours) 02/19/19 11:27 Temperature 97.9 F Pulse Rate 52 L Respiratory 18 Rate Blood Pressure 127/64 Labs reviewed, Vitals signs stable. Continue rehab.
--- NOTE | 2019-02-19 18:46 | PN ---
S Progress Note Note: Patient w/ a hx cancer of prostate. States treated with seeding and radiation in 2012. Currently on flomax. States had an episode in past of inabilty to urinate and had a catheter in place x 7 days. Hx: Blood clots - on Plavix. Arthritis of right hip - uses a cane for ambulation. PPD+ : Last CXR 02/14/19 - neg EK02/14/19: Borderline. Patient recently detoxed from alcohol and opiates and stable w/o withdrawal symptoms. Co-occurring hx cocaine and marijuana use disorder. CC: Patient presently c/o bladder spasms and no urination since earlier this am. Bladder firm/distended. Vital Signs 02/19/19 02/19/19 11:27 18:57 Temperature 97.9 F 99.5 F Pulse Rate 52 L 58 L Respiratory 18 18 Rate Blood Pressure 127/64 115/69 Plan: Will send to [facility] ED for evaluation. Report given to Dr. Contreras. Patient being transported by ambulance.
[2019-02-19] MEDS: THIAMINE HCL 100 MG TABLET (FP) PO SCH (22:00)
[2019-02-20] MEDS: TAMSULOSIN HCL 0.4 MG CAP PO SCH (10:00)
[2019-02-20] MEDS: ASPIRIN COATED 81 MG TABLET.EC PO SCH (10:00)
[2019-02-20] MEDS: CLOPIDOGREL BISULFATE 75 MG TABLET (FP) PO SCH (10:00)
[2019-02-20] MEDS: NICOTINE 21 MG/24 HOURS TOPICAL PATCH TD SCH (10:00)
[2019-02-20] MEDS: PRENATAL VITAMINS W/ FOLIC ACID TABLET (FP) PO SCH (10:01)
--- NOTE | 2019-02-20 10:35 | PN ---
[facility] Progress Note Note: Pt was sent back from [facility] yesterday-- sent for urinary retention. A baig catheter was placed and urine is draining well today. Pt is keeping record of this. Pt is on Flomax and will continue with Bactrim for 10 days per [facility] recommendations. HPI: Pt was diagnosed with prostate cancer at the age 55 while incarcerated. Received 5 weeks external radiation therapy, and got time released radiation seed implants. Had f/u with Dr. Godinez/Oncology. Has been free of cancer until 2014 when we had urinary retention. At that time had catheter placed and removed after 7 days. Was incarcerated shortly after. Pt was released from half-way 3 weeks ago and almost immediately relapsed with using heroin/fentanyl. Used for about 3 days or so. Came here for detox and now rehab. Pt is homeless and needs ham stripper rehab. Pt will talk to counselor and to consider MAT suboxone/fentanyl to prevent relapse. Vital Signs - 24 hr 02/19/19 02/19/19 02/20/19 11:27 18:57 04:33 Temperature 97.9 F 99.5 F 97.8 F Pulse Rate 52 L 58 L 60 Respiratory 18 18 18 Rate Blood Pressure 127/64 115/69 132/75 02/20/19 07:25 Temperature 98.2 F Pulse Rate 69 Respiratory 18 Rate Blood Pressure 155/88 Laboratory Tests 02/19/19 02/20/19 16:58 06:37 POC Glucometer 88 92 a/p: Prostate Ca/ urinary retention- baig catheter in place, antibiotics, flomax, f/u 03/03 for further eval with Dr. Rodriguez- [phone]. h/o CVA- on anticoagulants HTN- stable, a bit high today- monitor for now
[2019-02-20] MEDS ORDERED: FLU VACCINE QUAD 60 MCG/0.5 ML (MDV 19-20) IM ONE (11:50)
[2019-02-20] MEDS: SULFAMETHOXAZOLE/TRIMETHOPRIM 800MG/160MG D.S. TABLET PO SCH ×2 (11:55→21:17)
[2019-02-20] MEDS: THIAMINE HCL 100 MG TABLET (FP) PO SCH (21:17)
[2019-02-20] MEDS: MELATONIN 5 MG TABLETS PO PRN (21:18)
[2019-02-21] MEDS: ASPIRIN COATED 81 MG TABLET.EC PO SCH (10:27)
[2019-02-21] MEDS: CLOPIDOGREL BISULFATE 75 MG TABLET (FP) PO SCH (10:27)
[2019-02-21] MEDS: PRENATAL VITAMINS W/ FOLIC ACID TABLET (FP) PO SCH (10:27)
[2019-02-21] MEDS: SULFAMETHOXAZOLE/TRIMETHOPRIM 800MG/160MG D.S. TABLET PO SCH ×2 (10:27→21:29)
[2019-02-21] MEDS: TAMSULOSIN HCL 0.4 MG CAP PO SCH (10:28)
[2019-02-21] MEDS: NICOTINE 21 MG/24 HOURS TOPICAL PATCH TD SCH (10:31)
[2019-02-21] MEDS: THIAMINE HCL 100 MG TABLET (FP) PO SCH (21:29)
[2019-02-21] MEDS: MELATONIN 5 MG TABLETS PO PRN (21:30)
[2019-02-22] MEDS: CLOPIDOGREL BISULFATE 75 MG TABLET (FP) PO SCH (10:01)
[2019-02-22] MEDS: ASPIRIN COATED 81 MG TABLET.EC PO SCH (10:01)
[2019-02-22] MEDS: TAMSULOSIN HCL 0.4 MG CAP PO SCH (10:01)
[2019-02-22] MEDS: SULFAMETHOXAZOLE/TRIMETHOPRIM 800MG/160MG D.S. TABLET PO SCH ×2 (10:01→22:02)
[2019-02-22] MEDS: PRENATAL VITAMINS W/ FOLIC ACID TABLET (FP) PO SCH (10:01)
[2019-02-22] MEDS: NICOTINE 21 MG/24 HOURS TOPICAL PATCH TD SCH (10:02)
[2019-02-22] MEDS: THIAMINE HCL 100 MG TABLET (FP) PO SCH (22:02)
[2019-02-22] MEDS: MELATONIN 5 MG TABLETS PO PRN (22:02)
[2019-02-23] MEDS: TAMSULOSIN HCL 0.4 MG CAP PO SCH (09:39)
[2019-02-23] MEDS: CLOPIDOGREL BISULFATE 75 MG TABLET (FP) PO SCH (09:39)
[2019-02-23] MEDS: ASPIRIN COATED 81 MG TABLET.EC PO SCH (09:39)
[2019-02-23] MEDS: SULFAMETHOXAZOLE/TRIMETHOPRIM 800MG/160MG D.S. TABLET PO SCH ×2 (09:39→21:43)
[2019-02-23] MEDS: NICOTINE 21 MG/24 HOURS TOPICAL PATCH TD SCH (09:40)
[2019-02-23] MEDS: PRENATAL VITAMINS W/ FOLIC ACID TABLET (FP) PO SCH (09:40)
[2019-02-23] MEDS: MELATONIN 5 MG TABLETS PO PRN (21:43)
[2019-02-23] MEDS: THIAMINE HCL 100 MG TABLET (FP) PO SCH (21:43)
--- NOTE | 2019-02-24 10:24 | PN ---
[facility] COWS - Scale Resting Pulse: 0= [place] 80 or Below Sweatin= No chills or Flushing Restless Observation: 0= Sits Still Pupil Size: 0= Normal to Room Light Bone or Joint Aches: 4=Acute Joint/Muscle Pain Runny Nose/ Eye Tearin= None GI Upset > 30mins: 0= None Tremor Observation of Outstretched Hands: 1= Tremor [place], Not Seen Yawning Observation: 0= None Anxiety or Irritability: 2=Irritable/Anxious Goose Flesh Skin: 0=Smooth Skin COWS Score: 7 [facility] Progress Note (SOAP) Subjective: Patient seen for follow up indwelling catheter and c/o withdrawal symptoms. Patient has hx of Prostate Ca and BPH. Currently on Bactrim orally for 10 day course. Patient denies chills, fever, pelvic pain and urinary discomfort. Has catheter to leg bag and Urology appt scheduled for 03/03/2019. Laboratory Tests 02/19/19 02/20/19 02/21/19 16:58 06:37 06:22 POC Glucometer 88 92 117 02/22/19 02/23/19 02/24/19 06:19 06:05 06:41 POC Glucometer 105 101 105 Vital Signs Temperature 98 F 02/24/19 06:00 Pulse Rate 60 02/24/19 06:00 Respiratory Rate 20 02/24/19 06:00 Blood Pressure 114/62 02/24/19 06:00 O2 Sat by Pulse Oximetry (%) ROS: c/o opiod cravings, body aches. States " I know I need help not to use". Objective: 02/24/19 10:43 PE: alert and oriented x 3 skin warm and dry +perrla, eoms intact bl pupils mildly dilated ext full rom, mild tremors felt amb ad yin Istop reviwed and negative Assessment: 02/24/19 10:43 A/P: opiod dependence suboxone mat indwelling cather/Prostate Ca/BPH Plan: Patient connected to [facility] for aftercare start suboxone 2mg sl bid-first dose now continue rehab services urology follow up 03/03/2019 monitor clinically
[2019-02-24] MEDS: NICOTINE 21 MG/24 HOURS TOPICAL PATCH TD SCH (11:07)
[2019-02-24] MEDS: TAMSULOSIN HCL 0.4 MG CAP PO SCH (11:07)
[2019-02-24] MEDS: SULFAMETHOXAZOLE/TRIMETHOPRIM 800MG/160MG D.S. TABLET PO SCH ×2 (11:07→21:31)
[2019-02-24] MEDS: CLOPIDOGREL BISULFATE 75 MG TABLET (FP) PO SCH (11:07)
[2019-02-24] MEDS: ASPIRIN COATED 81 MG TABLET.EC PO SCH (11:07)
[2019-02-24] MEDS: PRENATAL VITAMINS W/ FOLIC ACID TABLET (FP) PO SCH (11:08)
[2019-02-24] MEDS: BUPRENORPHINE/NALOXONE 2 MG/0.5 MG FILM PACKET SL SCH ×2 (12:13→21:32)
[2019-02-24] MEDS: THIAMINE HCL 100 MG TABLET (FP) PO SCH (21:31)
[2019-02-25] MEDS: PRENATAL VITAMINS W/ FOLIC ACID TABLET (FP) PO SCH (09:54)
[2019-02-25] MEDS: TAMSULOSIN HCL 0.4 MG CAP PO SCH (09:54)
[2019-02-25] MEDS: SULFAMETHOXAZOLE/TRIMETHOPRIM 800MG/160MG D.S. TABLET PO SCH ×2 (09:54→21:13)
[2019-02-25] MEDS: CLOPIDOGREL BISULFATE 75 MG TABLET (FP) PO SCH (09:54)
[2019-02-25] MEDS: ASPIRIN COATED 81 MG TABLET.EC PO SCH (09:54)
[2019-02-25] MEDS: BUPRENORPHINE/NALOXONE 2 MG/0.5 MG FILM PACKET SL SCH ×2 (09:57→21:14)
[2019-02-25] MEDS: NICOTINE 21 MG/24 HOURS TOPICAL PATCH TD SCH (09:58)
[2019-02-25] MEDS: THIAMINE HCL 100 MG TABLET (FP) PO SCH (21:13)
[2019-02-25] MEDS: MELATONIN 5 MG TABLETS PO PRN (21:13)
[2019-02-26] MEDS: NICOTINE 21 MG/24 HOURS TOPICAL PATCH TD SCH (09:53)
[2019-02-26] MEDS: CLOPIDOGREL BISULFATE 75 MG TABLET (FP) PO SCH (09:53)
[2019-02-26] MEDS: PRENATAL VITAMINS W/ FOLIC ACID TABLET (FP) PO SCH (09:53)
[2019-02-26] MEDS: ASPIRIN COATED 81 MG TABLET.EC PO SCH (09:53)
[2019-02-26] MEDS: SULFAMETHOXAZOLE/TRIMETHOPRIM 800MG/160MG D.S. TABLET PO SCH ×2 (09:53→22:29)
[2019-02-26] MEDS: TAMSULOSIN HCL 0.4 MG CAP PO SCH (09:53)
[2019-02-26] MEDS: BUPRENORPHINE/NALOXONE 2 MG/0.5 MG FILM PACKET SL SCH ×2 (09:54→22:29)
--- NOTE | 2019-02-26 14:52 | PN ---
[facility] Progress Note Note: Patient is a 58 yo male with hx of Prostate Ca tx 2012 and BPH is here for alcohol and opioid rehabilitation on Bactrim PO BID, Plavix and ASA, c/o of gross hematuria x 2 days, reports no other complaints. Patient AOX3 no acute distress EENT WNL No adventitious breath sounds no abd tenderness + blood urine hematuria Patient sent to [facility] for further evaluation, endorsed to Dr. Juarez, transported via [facility].
[2019-02-26] MEDS: THIAMINE HCL 100 MG TABLET (FP) PO SCH (22:29)
[2019-02-26] MEDS: MELATONIN 5 MG TABLETS PO PRN (22:29)
[2019-02-27] MEDS: TAMSULOSIN HCL 0.4 MG CAP PO SCH (09:39)
[2019-02-27] MEDS: PRENATAL VITAMINS W/ FOLIC ACID TABLET (FP) PO SCH (09:39)
[2019-02-27] MEDS: SULFAMETHOXAZOLE/TRIMETHOPRIM 800MG/160MG D.S. TABLET PO SCH ×2 (09:40→21:16)
[2019-02-27] MEDS: NICOTINE 21 MG/24 HOURS TOPICAL PATCH TD SCH (09:40)
[2019-02-27] MEDS: BUPRENORPHINE/NALOXONE 2 MG/0.5 MG FILM PACKET SL SCH (09:42)
[2019-02-27] MEDS: ASPIRIN COATED 81 MG TABLET.EC PO SCH (09:45)
[2019-02-27] MEDS: CLOPIDOGREL BISULFATE 75 MG TABLET (FP) PO SCH (09:45)
--- NOTE | 2019-02-27 11:26 | PN ---
[facility] Progress Note Note: Patient has a history of opioid dependence and cancer and stroke. He is on ASA and Plavix. 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 He recently had bleeding from the bladder and was seen in ER yesterday and bleeding stabilized. Apparently the Townsend was irritating the bladder and the appropriate attachment and the balloon portion wasn't properly inflated which was causing bleeding. However, he was educated to the fact that stopping the plavix would increase his risks of having another stroke. He however, is still having cravings to use and requests an increase in his suboxone. As he plans to follow up with his provider and has an assigned provider, he understands that he must have a suboxone provider once he is discharged from [facility]. Will increase his suboxone dose to 4mg daily for now and he must follow up with a suboxone provider upon discharge. Dr. Nieto
[2019-02-27] MEDS: THIAMINE HCL 100 MG TABLET (FP) PO SCH (21:16)
[2019-02-27] MEDS: BUPRENORPHINE/NALOXONE 4 MG/1 MG FILM PACKET SL SCH (21:17)
[2019-02-28] MEDS: ASPIRIN COATED 81 MG TABLET.EC PO SCH (10:13)
[2019-02-28] MEDS: SULFAMETHOXAZOLE/TRIMETHOPRIM 800MG/160MG D.S. TABLET PO SCH ×2 (10:13→21:20)
[2019-02-28] MEDS: CLOPIDOGREL BISULFATE 75 MG TABLET (FP) PO SCH (10:14)
[2019-02-28] MEDS: TAMSULOSIN HCL 0.4 MG CAP PO SCH (10:14)
[2019-02-28] MEDS: PRENATAL VITAMINS W/ FOLIC ACID TABLET (FP) PO SCH (10:14)
[2019-02-28] MEDS: NICOTINE 21 MG/24 HOURS TOPICAL PATCH TD SCH (10:16)
[2019-02-28] MEDS: BUPRENORPHINE/NALOXONE 4 MG/1 MG FILM PACKET SL SCH ×2 (10:16→21:19)
[2019-02-28] MEDS: THIAMINE HCL 100 MG TABLET (FP) PO SCH (21:18)
[2019-02-28] MEDS: MELATONIN 5 MG TABLETS PO PRN (21:20)
[2019-03-01] MEDS: TAMSULOSIN HCL 0.4 MG CAP PO SCH (10:25)
[2019-03-01] MEDS: BUPRENORPHINE/NALOXONE 4 MG/1 MG FILM PACKET SL SCH ×2 (10:25→21:45)
[2019-03-01] MEDS: PRENATAL VITAMINS W/ FOLIC ACID TABLET (FP) PO SCH (10:25)
[2019-03-01] MEDS: ASPIRIN COATED 81 MG TABLET.EC PO SCH (10:26)
[2019-03-01] MEDS: CLOPIDOGREL BISULFATE 75 MG TABLET (FP) PO SCH (10:26)
[2019-03-01] MEDS: NICOTINE 21 MG/24 HOURS TOPICAL PATCH TD SCH (10:26)
[2019-03-01] MEDS: SULFAMETHOXAZOLE/TRIMETHOPRIM 800MG/160MG D.S. TABLET PO SCH ×2 (10:26→21:43)
[2019-03-01] MEDS: THIAMINE HCL 100 MG TABLET (FP) PO SCH (21:43)
[2019-03-01] MEDS: MELATONIN 5 MG TABLETS PO PRN (21:44)
[2019-03-02] MEDS: NICOTINE 21 MG/24 HOURS TOPICAL PATCH TD SCH (10:04)
[2019-03-02] MEDS: ASPIRIN COATED 81 MG TABLET.EC PO SCH (10:04)
[2019-03-02] MEDS: PRENATAL VITAMINS W/ FOLIC ACID TABLET (FP) PO SCH (10:04)
[2019-03-02] MEDS: CLOPIDOGREL BISULFATE 75 MG TABLET (FP) PO SCH (10:04)
[2019-03-02] MEDS: TAMSULOSIN HCL 0.4 MG CAP PO SCH (10:04)
[2019-03-02] MEDS: BUPRENORPHINE/NALOXONE 4 MG/1 MG FILM PACKET SL SCH ×2 (10:04→21:20)
[2019-03-02] MEDS: THIAMINE HCL 100 MG TABLET (FP) PO SCH (21:19)
[2019-03-02] MEDS: MELATONIN 5 MG TABLETS PO PRN (21:19)
[2019-03-03] MEDS: PRENATAL VITAMINS W/ FOLIC ACID TABLET (FP) PO SCH (10:07)
[2019-03-03] MEDS: ASPIRIN COATED 81 MG TABLET.EC PO SCH (10:07)
[2019-03-03] MEDS: CLOPIDOGREL BISULFATE 75 MG TABLET (FP) PO SCH (10:07)
[2019-03-03] MEDS: TAMSULOSIN HCL 0.4 MG CAP PO SCH (10:07)
[2019-03-03] MEDS: BUPRENORPHINE/NALOXONE 4 MG/1 MG FILM PACKET SL SCH (10:08)
[2019-03-03] MEDS: NICOTINE 21 MG/24 HOURS TOPICAL PATCH TD SCH (10:10)
[2019-03-03] MEDS: THIAMINE HCL 100 MG TABLET (FP) PO SCH (21:33)
[2019-03-03] MEDS: MELATONIN 5 MG TABLETS PO PRN (21:34)
[2019-03-04] MEDS: BUPRENORPHINE/NALOXONE 8 MG/2 MG FILM PACKET SL SCH (10:06)
[2019-03-04] MEDS: TAMSULOSIN HCL 0.4 MG CAP PO SCH (10:06)
[2019-03-04] MEDS: PRENATAL VITAMINS W/ FOLIC ACID TABLET (FP) PO SCH (10:06)
[2019-03-04] MEDS: ASPIRIN COATED 81 MG TABLET.EC PO SCH (10:06)
[2019-03-04] MEDS: CLOPIDOGREL BISULFATE 75 MG TABLET (FP) PO SCH (10:06)
[2019-03-04] MEDS: NICOTINE 21 MG/24 HOURS TOPICAL PATCH TD SCH (10:07)
[2019-03-04] MEDS: MELATONIN 5 MG TABLETS PO PRN (21:11)
[2019-03-04] MEDS: THIAMINE HCL 100 MG TABLET (FP) PO SCH (21:11)
[2019-03-05] MEDS: PRENATAL VITAMINS W/ FOLIC ACID TABLET (FP) PO SCH (10:12)
[2019-03-05] MEDS: CLOPIDOGREL BISULFATE 75 MG TABLET (FP) PO SCH (10:12)
[2019-03-05] MEDS: TAMSULOSIN HCL 0.4 MG CAP PO SCH (10:12)
[2019-03-05] MEDS: BUPRENORPHINE/NALOXONE 8 MG/2 MG FILM PACKET SL SCH (10:12)
[2019-03-05] MEDS: NICOTINE 21 MG/24 HOURS TOPICAL PATCH TD SCH (10:12)
[2019-03-05] MEDS: ASPIRIN COATED 81 MG TABLET.EC PO SCH (10:12)
--- NOTE | 2019-03-05 13:29 | PN ---
[facility] Progress Note Note: Pt still with tea colored urine. Pt is on plavix and aspirin for CVA in 2017. Pt takes plavix intermittently as an outpt. Reviewed previous notes including the most recent note left by Dr. Nieto- debating whether to stop plavix. Pt was seen in ER twice in the last week for urine retention, baig catheter placed. Subsequently pt had bleeding into urine bag. Shared decision making with meds- pt wants to stop both plavix and aspirin to stop bleeding into urine. d/w pt to stop plavix first and if there is continued bleeding can discuss stopping ASA. Risks of CVA discussed if plavix was stopped with pt and Dr. Nieto..
--- NOTE | 2019-03-05 19:38 | PN ---
[facility] Progress Note Note: Pt states that he now has tea colored urine with blood clots in his baig collection bag- confrimed by nurse. Pt was seen twice in the ER in the last few days. Pt is on ASA. Plavix was stopped today. Pt was on these for h/o CVA. Pt to go to ER for evaluation. Called ER talked to Dr. Hall.
[2019-03-05] MEDS: THIAMINE HCL 100 MG TABLET (FP) PO SCH (22:25)
--- NOTE | 2019-03-06 01:02 | PN ---
[facility] Progress Note Note: returns from [facility] a/o x3 nad. dark avelino color urine noted in baig bag. dx hemorrhagic cystitis pending urine cx start keflex 500 mg bid x10d Medical Decision Making - Medical Decision Making Bala Fagan is a 58 yo M w a hx of prostate cancer, CVA, NIDDM, recent UTI , multiple urinary catheterizations 2/2 urinary retention, substance abuse, recent incarceration who presents to the [facility] er from [facility] with a baig in place stating he is urinating too much blood and he is worried that he doesn't have enough left. He states his urine is dark and tea colored and there are multiple clots in his baig bag. He states he recently had a UTI and has been receiving Abx for his infection. He is taking both aspirin and plavix (plavix was stopped today) and is worried that these blood thinners are contributing to his hematuria. Patient states his urine has also smelled funny since he had this infection. Patient denies lower abdominal pain, chest pain, SOB, difficulty breathing, numbness, tingling, chills, back pain, leg pain Vital Signs Temp Pulse Resp BP Pulse Ox 97.9 F 59 L 18 144/78 99 03/05/19 20:47 03/05/19 20:47 03/05/19 20:47 03/05/19 20:47 03/05/19 20:47 DDx IBNLT: UTI/Pylo, anemia, decreased tissue perfusion, electrolyte/metabolic abnormality, coagulopathy Plan: Labs, urine, re-assess. Labs: Hb normal, mildly elevated BUN Urine: Dirty and suggests patient has a UTI. Will treat with keflex and schedule call [facility] to broaden Abx coverage based on culture. - Call back placed in [place] Re-assessment: Urine cleared up in ER and looks better than arrival Dispo: Back to [facility]. This is likely hemorrhagic cystitis. Discharge - Discharge Information Problems reviewed: Yes Clinical Impression/Diagnosis: Hemorrhagic cystitis Condition: Improved Disposition: HOME - Admission No - Additional Discharge Information Prescriptions: Cephalexin [Keflex] 500 mg PO BID 10 Days #20 capsule
[2019-03-06] MEDS: NICOTINE 21 MG/24 HOURS TOPICAL PATCH TD SCH (10:24)
[2019-03-06] MEDS: PRENATAL VITAMINS W/ FOLIC ACID TABLET (FP) PO SCH (10:24)
[2019-03-06] MEDS: BUPRENORPHINE/NALOXONE 8 MG/2 MG FILM PACKET SL SCH (10:24)
[2019-03-06] MEDS: ASPIRIN COATED 81 MG TABLET.EC PO SCH (10:24)
[2019-03-06] MEDS: CEPHALEXIN MONOHYDRATE 500 MG CAPSULE (UD) PO SCH ×2 (10:24→21:10)
[2019-03-06] MEDS: TAMSULOSIN HCL 0.4 MG CAP PO SCH (10:24)
[2019-03-06 11:45] LABS: BASO % 0.8 % (0-2.0); EOS % 3.7 % (0-4.5); HEMATOCRIT 40.4 % (35.4-49); HEMOGLOBIN 13.8 GM/dL (11.7-16.9); LYMPH % 36.9 % (8-40); MCH 33.2 pg (25.7-33.7); MEAN CELL VOLUME 97.7 fl (80-96); MEAN PLT VOLUME 7.5 fl (7.5-11.1); MONO % 9.7 % (3.8-10.2); NEUT % 48.9 % (42.8-82.8); PLATELET COUNT 281 K/MM3 (134-434); RBC 4.14 M/mm3 (4.00-5.60); RDW 15.2 % (11.9-15.9); WHITE BLOOD COUNT 7.7 K/mm3 (4.0-10.0)
--- NOTE | 2019-03-06 12:31 | PN ---
[facility] Progress Note Note: S. Patient was complaining that he wasn't being taken seriously about his urine yesterday. He was sent to [facility] and then told that he needed to have his antibiotics changed. The plavix was also discontinued yesterday because of the continued dark colored urine in the baig bag. He was asking that his urologist appointment be changed to an earlier date than they then rescheduled it for due to the complication of these days with his indwelling baig catheter. A repeat CBC was done. O. Abnormal Lab Results 03/06/19 08:00 MCV 97.7 H Laboratory 02/28/19 03/03/19 03/05/19 05:56 06:00 06:49 WBC RBC Hgb Hct MCV MCH MCHC RDW Plt Count MPV Absolute Neuts (auto) Neutrophils % Lymphocytes % Monocytes % Eosinophils % Basophils % Nucleated RBC % POC Glucometer 82 UNITS UNITS 97 UNITS UNITS 105 UNITS UNITS (80-120) (80-120) (80-120) 03/05/19 03/06/19 16:55 08:00 WBC 7.7 K/mm3 K/mm3 (4.0-10.0) RBC 4.14 M/mm3 M/mm3 (4.00-5.60) Hgb 13.8 GM/dL GM/dL (11.7-16.9) Hct 40.4 % % (35.4-49) MCV 97.7 fl H fl (80-96) MCH 33.2 pg pg (25.7-33.7) MCHC 34.0 g/dl g/dl (32.0-35.9) RDW 15.2 % % (11.9-15.9) Plt Count 281 K/MM3 K/MM3 (134-434) MPV 7.5 fl fl (7.5-11.1) Absolute Neuts (auto) 3.7 K/mm3 K/mm3 (1.5-8.0) Neutrophils % 48.9 % % (42.8-82.8) Lymphocytes % 36.9 % % (8-40) Monocytes % 9.7 % % (3.8-10.2) Eosinophils % 3.7 % % (0-4.5) Basophils % 0.8 % % (0-2.0) Nucleated RBC % 0 % % (0-0) POC Glucometer 120 UNITS UNITS (80-120) A/P: 1. Multiple medical problems are stabilized. 2. Acute problem now resolving as there was no hematuria visible in baig bag and antibiotic changed to keflex. 3. This press writer will attempt to make his appointment for the urologist, Corbin Bazan MD at [address] [facility], [place] [address] to an earlier date and inform discharge planning and provider here to relay that message to the patient. 4. CBC reviewed. H/H stable despite the bleeding. But now that the bleeding has ceased, it will stabilize further and no need to repeat another CBC. Dr. Nieto
[2019-03-06] MEDS: THIAMINE HCL 100 MG TABLET (FP) PO SCH (21:10)
[2019-03-06] MEDS: MELATONIN 5 MG TABLETS PO PRN (21:11)
--- NOTE | 2019-03-07 10:08 | PN ---
[facility] COWS - Scale Resting Pulse: 0= ID 80 or Below Sweatin=Flushed/Facial Moisture Restless Observation: 1= Difficult to Sit Still Pupil Size: 0= Normal to Room Light Bone or Joint Aches: 0= None Runny Nose/ Eye Tearin= None GI Upset > 30mins: 1= Stomach Cramp Tremor Observation of Outstretched Hands: 0= None Yawning Observation: 0= None Anxiety or Irritability: 2=Irritable/Anxious Goose Flesh Skin: 0=Smooth Skin COWS Score: 6 BHS Progress Note (SOAP) Subjective: Patient present with c/o chills, hot/cold flashes, stomach cramps and anxiety. Currently on suboxone 8mg sl daily. Objective: Laboratory Tests 02/19/19 02/20/19 02/21/19 16:58 06:37 06:22 WBC RBC Hgb Hct MCV MCH MCHC RDW Plt Count MPV Absolute Neuts (auto) Neutrophils % Lymphocytes % Monocytes % Eosinophils % Basophils % Nucleated RBC % POC Glucometer 88 92 117 02/22/19 02/23/19 02/24/19 06:19 06:05 06:41 WBC RBC Hgb Hct MCV MCH MCHC RDW Plt Count MPV Absolute Neuts (auto) Neutrophils % Lymphocytes % Monocytes % Eosinophils % Basophils % Nucleated RBC % POC Glucometer 105 101 105 02/24/19 02/25/19 02/26/19 16:19 16:29 06:31 WBC RBC Hgb Hct MCV MCH MCHC RDW Plt Count MPV Absolute Neuts (auto) Neutrophils % Lymphocytes % Monocytes % Eosinophils % Basophils % Nucleated RBC % POC Glucometer 114 123 97 02/28/19 03/03/19 03/05/19 05:56 06:00 06:49 WBC RBC Hgb Hct MCV MCH MCHC RDW Plt Count MPV Absolute Neuts (auto) Neutrophils % Lymphocytes % Monocytes % Eosinophils % Basophils % Nucleated RBC % POC Glucometer 82 97 105 03/05/19 03/06/19 03/07/19 16:55 08:00 06:04 WBC 7.7 RBC 4.14 Hgb 13.8 Hct 40.4 MCV 97.7 H MCH 33.2 MCHC 34.0 RDW 15.2 Plt Count 281 MPV 7.5 Absolute Neuts (auto) 3.7 Neutrophils % 48.9 Lymphocytes % 36.9 Monocytes % 9.7 Eosinophils % 3.7 Basophils % 0.8 Nucleated RBC % 0 POC Glucometer 120 102 Vital Signs Period Temp Pulse Resp BP Sys/Spears Pulse Ox Last 24 Hr 98.1 F 55 20-20 133/74 PE: alert and oriented x 3 skin warm, +facial moisture +perrla, eoms intact bl car s1s2 resp cta bl gi soft, nt, nd gu + baig to leg bag, urine yellow with small amount of blood present (pt reports bleeding much improved) ext no tremors, amb with cane +restlessness Assessment: 03/07/19 10:08 A/P: Hemorrhagic Cystitis (dx at [facility] 03/05/2019 and started on Keflex) opiod dependence suboxone mat Plan: will increase suboxone to 8mg sl bid continue group meetings monitor clinically
[2019-03-07] MEDS: BUPRENORPHINE/NALOXONE 8 MG/2 MG FILM PACKET SL SCH ×2 (10:20→21:35)
[2019-03-07] MEDS: CEPHALEXIN MONOHYDRATE 500 MG CAPSULE (UD) PO SCH ×2 (10:21→21:34)
[2019-03-07] MEDS: TAMSULOSIN HCL 0.4 MG CAP PO SCH (10:21)
[2019-03-07] MEDS: ASPIRIN COATED 81 MG TABLET.EC PO SCH (10:21)
[2019-03-07] MEDS: PRENATAL VITAMINS W/ FOLIC ACID TABLET (FP) PO SCH (10:21)
[2019-03-07] MEDS: NICOTINE 21 MG/24 HOURS TOPICAL PATCH TD SCH (10:22)
[2019-03-07] MEDS ORDERED: BUPRENORPHINE/NALOXONE 8 MG/2 MG FILM PACKET SL ONE (10:54)
[2019-03-07] MEDS: THIAMINE HCL 100 MG TABLET (FP) PO SCH (21:34)
[2019-03-07] MEDS: MELATONIN 5 MG TABLETS PO PRN (21:34)
[2019-03-08] MEDS: CEPHALEXIN MONOHYDRATE 500 MG CAPSULE (UD) PO SCH ×2 (10:05→21:26)
[2019-03-08] MEDS: ASPIRIN COATED 81 MG TABLET.EC PO SCH (10:05)
[2019-03-08] MEDS: PRENATAL VITAMINS W/ FOLIC ACID TABLET (FP) PO SCH (10:05)
[2019-03-08] MEDS: TAMSULOSIN HCL 0.4 MG CAP PO SCH (10:05)
[2019-03-08] MEDS: NICOTINE 21 MG/24 HOURS TOPICAL PATCH TD SCH (10:07)
[2019-03-08] MEDS: BUPRENORPHINE/NALOXONE 8 MG/2 MG FILM PACKET SL SCH ×2 (10:07→21:26)
[2019-03-08] MEDS: THIAMINE HCL 100 MG TABLET (FP) PO SCH (21:26)
[2019-03-09] MEDS: CEPHALEXIN MONOHYDRATE 500 MG CAPSULE (UD) PO SCH ×2 (10:09→21:22)
[2019-03-09] MEDS: ASPIRIN COATED 81 MG TABLET.EC PO SCH (10:09)
[2019-03-09] MEDS: TAMSULOSIN HCL 0.4 MG CAP PO SCH (10:09)
[2019-03-09] MEDS: PRENATAL VITAMINS W/ FOLIC ACID TABLET (FP) PO SCH (10:09)
[2019-03-09] MEDS: BUPRENORPHINE/NALOXONE 8 MG/2 MG FILM PACKET SL SCH ×2 (10:10→21:22)
[2019-03-09] MEDS: NICOTINE 21 MG/24 HOURS TOPICAL PATCH TD SCH (10:11)
[2019-03-09] MEDS: THIAMINE HCL 100 MG TABLET (FP) PO SCH (21:23)
[2019-03-10] MEDS: CEPHALEXIN MONOHYDRATE 500 MG CAPSULE (UD) PO SCH ×2 (10:14→21:11)
[2019-03-10] MEDS: TAMSULOSIN HCL 0.4 MG CAP PO SCH (10:14)
[2019-03-10] MEDS: NICOTINE 21 MG/24 HOURS TOPICAL PATCH TD SCH (10:14)
[2019-03-10] MEDS: PRENATAL VITAMINS W/ FOLIC ACID TABLET (FP) PO SCH (10:14)
[2019-03-10] MEDS: ASPIRIN COATED 81 MG TABLET.EC PO SCH (10:14)
[2019-03-10] MEDS: THIAMINE HCL 100 MG TABLET (FP) PO SCH (21:11)
[2019-03-10] MEDS: MELATONIN 5 MG TABLETS PO PRN (21:11)
--- NOTE | 2019-03-11 06:55 | PN ---
[facility] Progress Note Note: Patient did not receive prescribed Suboxone on 03/10/18. No indication as to why not received. Patient requesting medication as beginning to experience w/drawal symptoms. Endosrsed to Dr. Nieto for f/u.
[2019-03-11] MEDS: TAMSULOSIN HCL 0.4 MG CAP PO SCH (09:56)
[2019-03-11] MEDS: PRENATAL VITAMINS W/ FOLIC ACID TABLET (FP) PO SCH (09:56)
[2019-03-11] MEDS: NICOTINE 21 MG/24 HOURS TOPICAL PATCH TD SCH (09:56)
[2019-03-11] MEDS: CEPHALEXIN MONOHYDRATE 500 MG CAPSULE (UD) PO SCH ×2 (09:56→21:32)
[2019-03-11] MEDS: ASPIRIN COATED 81 MG TABLET.EC PO SCH (09:56)
[2019-03-11] MEDS: BUPRENORPHINE/NALOXONE 8 MG/2 MG FILM PACKET SL SCH ×2 (09:56→21:33)
[2019-03-11] MEDS: MELATONIN 5 MG TABLETS PO PRN (21:32)
[2019-03-11] MEDS: THIAMINE HCL 100 MG TABLET (FP) PO SCH (21:32)
[2019-03-12] MEDS: ASPIRIN COATED 81 MG TABLET.EC PO SCH (09:51)
[2019-03-12] MEDS: CEPHALEXIN MONOHYDRATE 500 MG CAPSULE (UD) PO SCH ×2 (09:51→21:39)
[2019-03-12] MEDS: PRENATAL VITAMINS W/ FOLIC ACID TABLET (FP) PO SCH (09:51)
[2019-03-12] MEDS: TAMSULOSIN HCL 0.4 MG CAP PO SCH (09:51)
[2019-03-12] MEDS: BUPRENORPHINE/NALOXONE 8 MG/2 MG FILM PACKET SL SCH ×2 (09:52→21:40)
[2019-03-12] MEDS: NICOTINE 21 MG/24 HOURS TOPICAL PATCH TD SCH (09:53)
[2019-03-12] MEDS: MELATONIN 5 MG TABLETS PO PRN (21:39)
[2019-03-12] MEDS: THIAMINE HCL 100 MG TABLET (FP) PO SCH (21:39)
[2019-03-13] MEDS: PRENATAL VITAMINS W/ FOLIC ACID TABLET (FP) PO SCH (10:15)
[2019-03-13] MEDS: TAMSULOSIN HCL 0.4 MG CAP PO SCH (10:15)
[2019-03-13] MEDS: ASPIRIN COATED 81 MG TABLET.EC PO SCH (10:15)
[2019-03-13] MEDS: BUPRENORPHINE/NALOXONE 8 MG/2 MG FILM PACKET SL SCH ×2 (10:15→22:01)
[2019-03-13] MEDS: NICOTINE 21 MG/24 HOURS TOPICAL PATCH TD SCH (10:16)
[2019-03-13] MEDS: MELATONIN 5 MG TABLETS PO PRN (22:01)
[2019-03-13] MEDS: THIAMINE HCL 100 MG TABLET (FP) PO SCH (22:01)
[2019-03-14] MEDS: BUPRENORPHINE/NALOXONE 8 MG/2 MG FILM PACKET SL SCH ×2 (10:31→21:37)
[2019-03-14] MEDS: ASPIRIN COATED 81 MG TABLET.EC PO SCH (10:32)
[2019-03-14] MEDS: NICOTINE 21 MG/24 HOURS TOPICAL PATCH TD SCH (10:32)
[2019-03-14] MEDS: PRENATAL VITAMINS W/ FOLIC ACID TABLET (FP) PO SCH (10:32)
[2019-03-14] MEDS: TAMSULOSIN HCL 0.4 MG CAP PO SCH (10:32)
[2019-03-14] MEDS: THIAMINE HCL 100 MG TABLET (FP) PO SCH (21:36)
[2019-03-15] MEDS: NICOTINE 21 MG/24 HOURS TOPICAL PATCH TD SCH (09:46)
[2019-03-15] MEDS: TAMSULOSIN HCL 0.4 MG CAP PO SCH (09:46)
[2019-03-15] MEDS: BUPRENORPHINE/NALOXONE 8 MG/2 MG FILM PACKET SL SCH ×2 (09:46→21:16)
[2019-03-15] MEDS: PRENATAL VITAMINS W/ FOLIC ACID TABLET (FP) PO SCH (09:46)
[2019-03-15] MEDS: ASPIRIN COATED 81 MG TABLET.EC PO SCH (09:46)
[2019-03-15] MEDS: MELATONIN 5 MG TABLETS PO PRN (21:16)
[2019-03-15] MEDS: THIAMINE HCL 100 MG TABLET (FP) PO SCH (21:16)
[2019-03-16] MEDS: ASPIRIN COATED 81 MG TABLET.EC PO SCH (09:44)
[2019-03-16] MEDS: TAMSULOSIN HCL 0.4 MG CAP PO SCH (09:44)
[2019-03-16] MEDS: NICOTINE 21 MG/24 HOURS TOPICAL PATCH TD SCH (09:44)
[2019-03-16] MEDS: BUPRENORPHINE/NALOXONE 8 MG/2 MG FILM PACKET SL SCH ×2 (09:44→21:30)
[2019-03-16] MEDS: PRENATAL VITAMINS W/ FOLIC ACID TABLET (FP) PO SCH (09:44)
[2019-03-16] MEDS: MELATONIN 5 MG TABLETS PO PRN (21:29)
[2019-03-16] MEDS: THIAMINE HCL 100 MG TABLET (FP) PO SCH (21:29)
[2019-03-17 06:54] VITALS: BP 136/79; PULSE 56; TEMP 98.4
--- NOTE | 2019-03-17 09:28 | DS ---
[facility] Rehab Discharge Summary - [facility] Rehab Discharge Summary Admission Date: 02/19/19 Discharge Date: 03/17/19 - History Present History: Cannabis dependence, Cocaine dependence, Opioid dependence - Discharge Physical Exam Vital Signs: Vital Signs Temperature 98.4 F 03/17/19 06:53 Pulse Rate 56 L 03/17/19 06:53 Respiratory Rate 18 03/17/19 06:53 Blood Pressure 136/79 03/17/19 06:53 O2 Sat by Pulse Oximetry (%) Laboratory Tests 02/19/19 02/20/19 02/21/19 16:58 06:37 06:22 WBC RBC Hgb Hct MCV MCH MCHC RDW Plt Count MPV Absolute Neuts (auto) Neutrophils % Lymphocytes % Monocytes % Eosinophils % Basophils % Nucleated RBC % POC Glucometer 88 92 117 02/22/19 02/23/19 02/24/19 06:19 06:05 06:41 WBC RBC Hgb Hct MCV MCH MCHC RDW Plt Count MPV Absolute Neuts (auto) Neutrophils % Lymphocytes % Monocytes % Eosinophils % Basophils % Nucleated RBC % POC Glucometer 105 101 105 02/24/19 02/25/19 02/26/19 16:19 16:29 06:31 WBC RBC Hgb Hct MCV MCH MCHC RDW Plt Count MPV Absolute Neuts (auto) Neutrophils % Lymphocytes % Monocytes % Eosinophils % Basophils % Nucleated RBC % POC Glucometer 114 123 97 02/28/19 03/03/19 03/05/19 05:56 06:00 06:49 WBC RBC Hgb Hct MCV MCH MCHC RDW Plt Count MPV Absolute Neuts (auto) Neutrophils % Lymphocytes % Monocytes % Eosinophils % Basophils % Nucleated RBC % POC Glucometer 82 97 105 03/05/19 03/06/19 03/07/19 16:55 08:00 06:04 WBC 7.7 RBC 4.14 Hgb 13.8 Hct 40.4 MCV 97.7 H MCH 33.2 MCHC 34.0 RDW 15.2 Plt Count 281 MPV 7.5 Absolute Neuts (auto) 3.7 Neutrophils % 48.9 Lymphocytes % 36.9 Monocytes % 9.7 Eosinophils % 3.7 Basophils % 0.8 Nucleated RBC % 0 POC Glucometer 120 102 03/07/19 03/08/19 03/09/19 17:12 16:32 16:24 WBC RBC Hgb Hct MCV MCH MCHC RDW Plt Count MPV Absolute Neuts (auto) Neutrophils % Lymphocytes % Monocytes % Eosinophils % Basophils % Nucleated RBC % POC Glucometer 148 135 110 03/10/19 03/10/19 03/12/19 05:48 16:20 05:51 WBC RBC Hgb Hct MCV MCH MCHC RDW Plt Count MPV Absolute Neuts (auto) Neutrophils % Lymphocytes % Monocytes % Eosinophils % Basophils % Nucleated RBC % POC Glucometer 98 163 93 03/12/19 03/14/19 03/14/19 16:46 06:37 16:19 WBC RBC Hgb Hct MCV MCH MCHC RDW Plt Count MPV Absolute Neuts (auto) Neutrophils % Lymphocytes % Monocytes % Eosinophils % Basophils % Nucleated RBC % POC Glucometer 106 95 135 - Treatment Discharge Condition: Discharge condition good Hospital Course: Patient completed rehab today for opiod/cocaine/etoh dependence. Patient started on Suboxone MAT during hospital course and tolerated treatment well. However, during admission he was sent multiple times for hematuria and inability to urinate due to BPH. Townsend Catheter inserted and patient remained with catheter in place to drain bladder, diagnosed with Hemorrhagic Cystitis. Treated with oral antibiotics and Plavix discontinued by Dr. Rosenberg. Patient arranged follow up Urology appt with Dr. Corbin Bazan MD at [address] [facility] [place], [place] [address] for 03/17/2019 at 2:30pm by Dr. Nieto. Aftercare for OUD arranged for [facility] in [facility] as patient is moving back there after discharge. Patient has walk in appointment for 2019. Prescription for 10 day course of Suboxone sent to preferred pharmacy. Patient encouraged to continue with group meetings and Suboxone MAT to maintain sobriety. He is medically stable at this time. Urine in leg bag yellow, clear and without any blood. He denies SI/HI and is motivated to remain sober. Laboratory Tests 02/19/19 02/20/19 02/21/19 16:58 06:37 06:22 WBC RBC Hgb Hct MCV MCH MCHC RDW Plt Count MPV Absolute Neuts (auto) Neutrophils % Lymphocytes % Monocytes % Eosinophils % Basophils % Nucleated RBC % POC Glucometer 88 92 117 02/22/19 02/23/19 02/24/19 06:19 06:05 06:41 WBC RBC Hgb Hct MCV MCH MCHC RDW Plt Count MPV Absolute Neuts (auto) Neutrophils % Lymphocytes % Monocytes % Eosinophils % Basophils % Nucleated RBC % POC Glucometer 105 101 105 02/24/19 02/25/19 02/26/19 16:19 16:29 06:31 WBC RBC Hgb Hct MCV MCH MCHC RDW Plt Count MPV Absolute Neuts (auto) Neutrophils % Lymphocytes % Monocytes % Eosinophils % Basophils % Nucleated RBC % POC Glucometer 114 123 97 02/28/19 03/03/19 03/05/19 05:56 06:00 06:49 WBC RBC Hgb Hct MCV MCH MCHC RDW Plt Count MPV Absolute Neuts (auto) Neutrophils % Lymphocytes % Monocytes % Eosinophils % Basophils % Nucleated RBC % POC Glucometer 82 97 105 03/05/19 03/06/19 03/07/19 16:55 08:00 06:04 WBC 7.7 RBC 4.14 Hgb 13.8 Hct 40.4 MCV 97.7 H MCH 33.2 MCHC 34.0 RDW 15.2 Plt Count 281 MPV 7.5 Absolute Neuts (auto) 3.7 Neutrophils % 48.9 Lymphocytes % 36.9 Monocytes % 9.7 Eosinophils % 3.7 Basophils % 0.8 Nucleated RBC % 0 POC Glucometer 120 102 03/07/19 03/08/19 03/09/19 17:12 16:32 16:24 WBC RBC Hgb Hct MCV MCH MCHC RDW Plt Count MPV Absolute Neuts (auto) Neutrophils % Lymphocytes % Monocytes % Eosinophils % Basophils % Nucleated RBC % POC Glucometer 148 135 110 03/10/19 03/10/19 03/12/19 05:48 16:20 05:51 WBC RBC Hgb Hct MCV MCH MCHC RDW Plt Count MPV Absolute Neuts (auto) Neutrophils % Lymphocytes % Monocytes % Eosinophils % Basophils % Nucleated RBC % POC Glucometer 98 163 93 03/12/19 03/14/19 03/14/19 16:46 06:37 16:19 WBC RBC Hgb Hct MCV MCH MCHC RDW Plt Count MPV Absolute Neuts (auto) Neutrophils % Lymphocytes % Monocytes % Eosinophils % Basophils % Nucleated RBC % POC Glucometer 106 95 135 Vital Signs Temperature 98.4 F 03/17/19 06:53 Pulse Rate 56 L 03/17/19 06:53 Respiratory Rate 18 03/17/19 06:53 Blood Pressure 136/79 03/17/19 06:53 O2 Sat by Pulse Oximetry (%) Ambulatory Orders Clopidogrel Bisulfate [Plavix] 75 mg PO DAILY 02/14/19 Multivitamins [Multivit ([facility] Formulary)] 1 tab PO DAILY 02/14/19 Naloxone HCl [Narcan] 4 mg NS ASDIR PRN #1 spray 02/16/19 Sulfamethoxazole/Trimethoprim [Bactrim Ds -] 1 tab PO BID #20 tablet 02/20/19 Cephalexin [Keflex] 500 mg PO BID 10 Days #20 capsule 03/05/19 Aspirin Coated [Ecotrin -] 81 mg PO DAILY #14 tablet.ec 03/17/19 Buprenorphine/Naloxone [Suboxone 8Mg/2Mg Sl Film -] 1 each SL BID@1000,2200 #20 film MDD 16 03/17/19 Tamsulosin HCl [Flomax] 0.4 mg PO DAILY #14 capsule 03/17/19 - Medication Discharge Medications: Ambulatory Orders Clopidogrel Bisulfate [Plavix] 75 mg PO DAILY 02/14/19 Multivitamins [Multivit ([facility] Formulary)] 1 tab PO DAILY 02/14/19 Naloxone HCl [Narcan] 4 mg NS ASDIR PRN #1 spray 02/16/19 Sulfamethoxazole/Trimethoprim [Bactrim Ds -] 1 tab PO BID #20 tablet 02/20/19 Cephalexin [Keflex] 500 mg PO BID 10 Days #20 capsule 03/05/19 Aspirin Coated [Ecotrin -] 81 mg PO DAILY #14 tablet.ec 03/17/19 Buprenorphine/Naloxone [Suboxone 8Mg/2Mg Sl Film -] 1 each SL BID@1000,2200 #20 film MDD 16 03/17/19 Tamsulosin HCl [Flomax] 0.4 mg PO DAILY #14 capsule 03/17/19 - Medication-Assisted Treatment (MAT) Medication-Assisted Treatment (MAT): Yes Medication Prescribed: Suboxone MAT Follow-up Referral: [facility] at [address] [place] [address] Walk in appointment for 03/21/2019. - Discharge Instructions Diet, activity, other medical instructions: Diet: Reg as tolerated Activity: Reg as tolerated Other medical instructions: Follow up scheduled for today 03/17/2019 at 2:30pm at [address] [facility] [address] Barrera - Follow-up Referral Minutes to complete discharge: 30 - AMA Did Patient Leave Against Medical Advice: No
[2019-03-17] MEDS: TAMSULOSIN HCL 0.4 MG CAP PO SCH (10:19)
[2019-03-17] MEDS: ASPIRIN COATED 81 MG TABLET.EC PO SCH (10:19)
[2019-03-17] MEDS: PRENATAL VITAMINS W/ FOLIC ACID TABLET (FP) PO SCH (10:19)
[2019-03-17] MEDS: BUPRENORPHINE/NALOXONE 8 MG/2 MG FILM PACKET SL SCH (10:19)
[2019-03-17] MEDS: NICOTINE 21 MG/24 HOURS TOPICAL PATCH TD SCH (10:20)
== END 2019-03-17 13:00 | disposition home or self-care (01) | DRG 772 ==
LOC: YASAS 11:04 → Y3W 11:05
PROVIDERS: ADMIT Neuromusculoskeletal Medicine & OMM; ATTEND Neuromusculoskeletal Medicine & OMM
PROC: HZ42ZZZ Group Counseling for Substance Abuse Treatment, Cognitive-Behavioral (ICD-10-PCS; principal; 2019-02-19)
DX: F11.20 Opioid dependence, uncomplicated (principal); F10.20 Alcohol dependence, uncomplicated; F14.10 Cocaine abuse, uncomplicated; F12.10 Cannabis abuse, uncomplicated; F17.210 Nicotine dependence, cigarettes, uncomplicated; E11.9 Type 2 diabetes mellitus without complications; M16.11 Unilateral primary osteoarthritis, right hip; N40.0 Benign prostatic hyperplasia without lower urinary tract symptoms; R31.9 Hematuria, unspecified; R33.9 Retention of urine, unspecified; N30.91 Cystitis, unspecified with hematuria; Z85.46 Personal history of malignant neoplasm of prostate; Z96.0 Presence of urogenital implants; R26.2 Difficulty in walking, not elsewhere classified; Z99.89 Dependence on other enabling machines and devices; Z86.73 Personal history of transient ischemic attack (TIA), and cerebral infarction without residual deficits; Z79.02 Long term (current) use of antithrombotics/antiplatelets; Z79.82 Long term (current) use of aspirin; Z56.0 Unemployment, unspecified; Z59.0 Homelessness
CPT/HCPCS: 36415; 82962; 85025; G0008; Q2036

== ENCOUNTER 2019-02-19 19:25 | Emergency (ER) | payer SELFPAY ==
[2019-02-19 19:38] VITALS: TEMP 99.3; BMI 24.3
--- NOTE | 2019-02-19 22:36 | PDOC ---
Documentation entered by Baltazar Pierce SCRIBE, acting as scribe for Norman Lewis MD. Norman Lewis MD: This documentation has been prepared by the Stan márquez Nirvannie, SCRIBE, under my direction and personally reviewed by me in its entirety. I confirm that the documentation accurately reflects all work, treatment, procedures, and medical decision making performed by me. History of Present Illness - General Chief Complaint: Urinary Problem Stated Complaint: URINARY PROBLEM Time Seen by Provider: 02/19/19 19:58 History Source: Patient Exam Limitations: No Limitations - History of Present Illness Initial Comments: 02/19/19 20:18 The patient is a 58 year old male, with a significant past medical history of prostate ca and substance abuse, who presents to the emergency department with difficulty voiding and spasming. As per patient, he recently finished detox and was at [facility] when prior to his arrival he began to feel to a spasming sensation with associated difficulty voiding. Patient notes it is similar to prior episodes of urinary retention which has required catherizations. He denies any recent fevers, chills, headache or dizziness. He denies any recent nausea, vomit, diarrhea or constipation. He denies any recent chest pain or shortness of breath. He denies any recent dysuria, frequency, urgency or hematuria. Allergies: NKDA Past History - Past Medical History Allergies/Adverse Reactions: Allergies Allergy/AdvReac Type Severity Reaction Status Date / Time No Known Allergies Allergy Verified 02/19/19 20:07 Home Medications: Ambulatory Orders Sulfamethoxazole/Trimethoprim [Bactrim Ds -] 1 tab PO BID #20 tablet 02/20/19 - Psycho Social/Smoking Cessation Hx Smoking History: Unknown if ever smoked Have you smoked in the past 12 months: Yes Information on smoking cessation initiated: No Hx Alcohol Use: Yes Drug/Substance Use Hx: Yes (cocaine,heroin,) Review of Systems - Review of Systems Able to Perform ROS?: Yes Comments:: 02/19/19 20:19 CONSTITUTIONAL: No reported: Fever, Chills, Diaphoresis, Generalized Weakness, Malaise, Loss of Appetite HEENT: No reported: Rhinorrhea, Nasal Congestion, Throat Pain, Throat Swelling, Difficulty Swallowing, Mouth Swelling, Ear Pain, Eye Pain, Visual Changes CARDIOVASCULAR: No reported: Chest Pain, Syncope, Palpitations, Irregular Heart Rate, Lightheadedness, Peripheral Edema RESPIRATORY: No reported: Cough, Shortness of Breath, SOB with Exertion, Orthopnea, Wheezing , Stridor, Hemoptysis GASTROINTESTINAL: No reported: Abdominal pain, Abdominal Distension, Nausea, Vomiting, Diarrhea, Constipation, Melena, Hematochezia GENITOURINARY: Present: Retention, difficulty voiding. No reported: Dysuria, Frequency, Urgency, Hesitancy, Flank Pain, Genital Pain MUSCULOSKELETAL: No reported: Myalgia, Arthralgia, Joint Swelling, Back pain, Neck Pain SKIN: No reported: Rash, Itching, Pallor HEMEATOLOGIC/IMMUNOLOGIC: No reported: Easy Bleeding, Easy Bruising, Lymphadenopathy, Frequent infections ENDOCRINE: No reported: Unexplained Weight Gain, Unexplained Weight Loss, Heat Intolerance , Cold Intolerance NEUROLOGIC: No reported: Headache, Focal Weakness, Paresthesias, Vertigo, Lightheadedness, Unsteady Gait, Seizure, Mental Status Changes, Incontinence PSYCHIATRIC: No reported: Anxiety, Depression *Physical Exam - Vital Signs Last Vital Signs Temp Pulse Resp BP Pulse Ox 99.3 F 60 18 115/70 98 02/19/19 19:30 02/19/19 19:30 02/19/19 19:30 02/19/19 19:30 02/19/19 19:30 - Physical Exam 02/19/19 20:04 GENERAL: The patient is awake, alert, and fully oriented, Nontoxic - in no acute distress. HEAD: Normocephalic, atraumatic. EYES: extraocular movements intact, sclera anicteric, conjunctiva clear. ENT: Normal voice, Moist mucous membranes. NECK: Normal range of motion, supple LUNGS: Breath sounds equal, clear to auscultation bilaterally. No wheezes, no rhonchi, no rales. HEART: Regular rate and rhythm, normal S1 and S2 without murmur, rub or gallop. ABDOMEN: Mildly distended and tender suprapubic region, no rebound or guarding, no CVA tenderness EXTREMITIES: Normal range of motion, no edema. NEUROLOGICAL: No facial assymetry, Normal speech, PSYCH: Normal mood, normal affect. SKIN: Warm, Dry, normal turgor, Medical Decision Making - Medical Decision Making 02/19/19 20:04 Suspected urinary retention, the patient was unable to provide any urine will place a Townsend catheter We will send a UA to screen for UTI 02/19/19 22:35 Unable to pass a Townsend catheter output after multiple tries. The patient states he is able to pass small amounts of urine by forcing it however it is uncomfortable. On bladder scan there is approximately 400 cc of urine. Will discuss with urology regarding how to proceed 02/19/19 23:57 catheter advanced by urology recommended dose of ctx here and dc wi bactrim ds and uro fu on 03/03 Discharge - Discharge Information Problems reviewed: Yes Clinical Impression/Diagnosis: Urinary retention Disposition: HOME - Admission No - Additional Discharge Information Prescriptions: Sulfamethoxazole/Trimethoprim [Bactrim Ds -] 1 tab PO BID #20 tablet - Follow up/Referral Referrals: Corbin Bazan MD [Staff Physician] - - Patient Discharge Instructions Patient Printed Discharge Instructions: DI for Urinary Retention in Men Additional Instructions: Continue take Bactrim DS twice a day for the next 10 days. Follow-up with Dr. Rodriguez (call [phone] for appt) on March 03 for further evaluation of your urinary retention. Return immediately if you have any fever/chills, back pain, persistent vomiting. Continue taking your Flomax as prescribed - Post Discharge Activity
[2019-02-19] MEDS ORDERED: CEFTRIAXONE 1 GM in DEXTROSE 5%-WATER - 50 ML IVPB ONE (23:57)
[2019-02-20] MEDS ORDERED: CEFTRIAXONE 1 GM/50 ML BAG ONE (01:41)
[2019-02-20 02:43] LABS: EPI CELLS 1.2 /HPF (0-5/HPF); HYALINE CASTS 1 /lpf (0-8); URINE APPEARANCE CLOUDY; URINE BACTERIA 2.7 /hpf (NEGATIVE); URINE BILIRUBIN NEGATIVE (NEGATIVE); URINE COLOR ORANGE; URINE GLUCOSE (UA) NEGATIVE (NEGATIVE); URINE KETONE NEGATIVE (NEGATIVE); URINE LEUK ESTERASE NEGATIVE (NEGATIVE); URINE NITRITE NEGATIVE (NEGATIVE); URINE PROTEIN TRACE (NEGATIVE); URINE RBC 758 /hpf (0-4); URINE UROBILINOGEN 0.2 mg/dL (0.2-1.0); URINE WBC 1 /hpf (0-5)
[2019-02-20 04:02] VITALS: BP 152/75; PULSE 97
== END 2019-02-20 03:50 | disposition home or self-care (01) ==
LOC: MERGE 19:25 → JER 19:25
DX: R33.9 Retention of urine, unspecified (principal); F19.10 Other psychoactive substance abuse, uncomplicated; Z87.898 Personal history of other specified conditions
CPT/HCPCS: 81003; 87086; 99283-25

== ENCOUNTER 2019-03-05 20:25 | Emergency (ER) | payer OTHER ==
--- NOTE | 2019-03-05 20:43 | PDOC ---
History of Present Illness - General Chief Complaint: Hematuria Stated Complaint: BLOOD IN URINE Time Seen by Provider: 03/05/19 20:34 History Source: Patient Exam Limitations: No Limitations - History of Present Illness Initial Comments: Bala Fagan is a 58 yo M w a hx of prostate cancer, CVA, NIDDM, recent UTI , multiple urinary catheterizations 2/2 urinary retention, substance abuse, recent incarceration who presents to the [facility] er from [facility] with a alfaro in place stating he is urinating too much blood and he is worried that he doesn't have enough left. He states his urine is dark and tea colored and there are multiple clots in his alfaro bag. He states he recently had a UTI and has been receiving Abx for his infection. He is taking both aspirin and plavix (plavix was stopped today) and is worried that these blood thinners are contributing to his hematuria. Patient states his urine has also smelled funny since he had this infection. Patient denies lower abdominal pain, chest pain, SOB, difficulty breathing, numbness, tingling, chills, back pain, leg pain PCP: None PSH: None reported Social Hx: Drinks alcohol currently in rehab at [facility], former smoker and opiod abuser, former cocaine and heroin user. Allergies: NKA, NKDA Past History - Past Medical History Allergies/Adverse Reactions: Allergies Allergy/AdvReac Type Severity Reaction Status Date / Time No Known Allergies Allergy Verified 03/05/19 20:57 Home Medications: Ambulatory Orders Aspirin Coated [Ecotrin -] 81 mg PO DAILY 02/14/19 Clopidogrel Bisulfate [Plavix] 75 mg PO DAILY 02/14/19 Multivitamins [Multivit ([facility] Formulary)] 1 tab PO DAILY 02/14/19 Tamsulosin HCl [Flomax] 0.4 mg PO DAILY 02/14/19 Naloxone HCl [Narcan] 4 mg NS ASDIR PRN #1 spray 02/16/19 Sulfamethoxazole/Trimethoprim [Bactrim Ds -] 1 tab PO BID #20 tablet 02/20/19 Cephalexin [Keflex] 500 mg PO BID 10 Days #20 capsule 03/05/19 Anemia: No Asthma: No Cancer: Yes (Prostate (2012)) Cardiac Disorders: No CVA: Yes COPD: No CHF: No Dementia: No Diabetes: Yes GI Disorders: No Disorders: Yes (Chronic) HTN: No Hypercholesterolemia: No Kidney Stones: No Liver Disease: No Seizures: No Thyroid Disease: No - Reproductive History Testicular Surgery: No - Psycho Social/Smoking Cessation Hx Smoking History: Former smoker Have you smoked in the past 12 months: Yes Number of Cigarettes Smoked Daily: 10 If you are a former smoker, when did you quit?: unk Cigars Per Day: 0 'Breaking Loose' booklet given: 02/14/19 Hx Alcohol Use: Yes Drug/Substance Use Hx: Yes (opiod) Substance Use Type: Alcohol, Cocaine, Tranquilizers, Heroin Hx Substance Use Treatment: Yes Review of Systems - Review of Systems Able to Perform ROS?: Yes Comments:: CONSTITUTIONAL: Absent: fever, no chills, no fatigue EYES: Absent: visual changes ENT: Absent: ear pain, no sore throat CARDIOVASCULAR: Absent: chest pain, no palpitations RESPIRATORY: Absent: cough, no SOB GI: Absent: abdominal pain, no nausea, no vomiting, no constipation, no diarrhea GENITOURINARY: Present: hematuria Absent: dysuria, no frequency MUSKULOSKELETAL: Absent: back pain, no arthralgia, no myalgia SKIN: Absent: rash NEURO: Absent: headache *Physical Exam - Physical Exam ALFARO: 100 CC of dark red/bron tea colored urine GENERAL: Well-appearing, well-nourished. No apparent distress. HEENT: Normocephalic, atraumatic. PERRL, EOM intact. CARDIOVASCULAR: Normal S1, S2. Regular rate and rhythm. PULMONARY: No evidence of respiratory distress. Lungs clear to auscultation bilaterally. No wheezing, rales or rhonchi. ABDOMEN: Soft, non-distended, non-tender. EXTREMITIES: Normal ROM in all four extremities. No gross deformities. SKIN: Warm, dry. No rash NEUROLOGICAL: No focal neurological deficits. ED Treatment Course - LABORATORY CBC & Chemistry Diagram: 03/05/19 20:56 03/05/19 20:56 Medical Decision Making - Medical Decision Making Bala Fagan is a 58 yo M w a hx of prostate cancer, CVA, NIDDM, recent UTI , multiple urinary catheterizations 2/2 urinary retention, substance abuse, recent incarceration who presents to the [facility] er from [facility] with a alfaro in place stating he is urinating too much blood and he is worried that he doesn't have enough left. He states his urine is dark and tea colored and there are multiple clots in his alfaor bag. He states he recently had a UTI and has been receiving Abx for his infection. He is taking both aspirin and plavix (plavix was stopped today) and is worried that these blood thinners are contributing to his hematuria. Patient states his urine has also smelled funny since he had this infection. Patient denies lower abdominal pain, chest pain, SOB, difficulty breathing, numbness, tingling, chills, back pain, leg pain Vital Signs Temp Pulse Resp BP Pulse Ox 97.9 F 59 L 18 144/78 99 03/05/19 20:47 03/05/19 20:47 03/05/19 20:47 03/05/19 20:47 03/05/19 20:47 DDx IBNLT: UTI/Pylo, anemia, decreased tissue perfusion, electrolyte/metabolic abnormality, coagulopathy Plan: Labs, urine, re-assess. Labs: Hb normal, mildly elevated BUN Urine: Dirty and suggests patient has a UTI. Will treat with keflex and schedule call back in [facility] to broaden Abx coverage based on culture. - Call back placed in [facility] Re-assessment: Urine cleared up in ER and looks better than arrival Dispo: Back to [facility]. This is likely hemorrhagic cystitis. Discharge - Discharge Information Problems reviewed: Yes Clinical Impression/Diagnosis: Hemorrhagic cystitis Condition: Improved Disposition: HOME - Admission No - Additional Discharge Information Prescriptions: Cephalexin [Keflex] 500 mg PO BID 10 Days #20 capsule - Follow up/Referral Referrals: Blaise Kessler MD [Primary Care Provider] - - Patient Discharge Instructions Patient Printed Discharge Instructions: DI for Hemorrhagic Cystitis Additional Instructions: You came into the ER with bloody urine. You have a bad urinary tract infection complicated by hemmorhagic cystitis. We are sending an antibiotic to your pharmacy - please make sure to go and pick it up and take twice a day for the next 10 days. Please schedule a follow up appointment with Dr. Welsh in the next 3 to 5 days to make sure you are feeling well and being taken care of. Come back to the ER immediately with any new or worsening concerns. Thank you for coming to the [facility] ER. We hope you feel better soon! Print Language: KYRGYZ - Post Discharge Activity
--- NOTE | 2019-03-05 20:54 | PDOC ---
Attending Attestation - Resident Resident Name: Francisco Armenta - ED Attending Attestation I have performed the following: I have examined & evaluated the patient, The case was reviewed & discussed with the resident, I agree w/resident's findings & plan - HPI HPI: 03/05/19 22:29 see resident hpi - Physicial Exam PE: 03/05/19 22:30 see resident exam - Medical Decision Making 03/05/19 22:30 58-year-old male with bloody urine in his Townsend leg bag Labs consistent with probable hemorrhagic cystitis Will DC on antibiotics with cultures pending Patient will be in our affiliated rehab, will initiate callback procedure pending culture results Otherwise he is awake alert in no distress
[2019-03-05 20:57] VITALS: BMI 24.4
[2019-03-05 21:29] LABS: BASO % 0.8 % (0-2.0); EOS % 3.7 % (0-4.5); HEMATOCRIT 38.6 % (35.4-49); LYMPH % 40.2 % (8-40); MCH 32.5 pg (25.7-33.7); MCHC 33.6 g/dl (32.0-35.9); MEAN CELL VOLUME 96.7 fl (80-96); MEAN PLT VOLUME 7.4 fl (7.5-11.1); MONO % 10.6 % (3.8-10.2); NEUT % 44.7 % (42.8-82.8); PLATELET COUNT 278 K/MM3 (134-434); RBC 3.99 M/mm3 (4.00-5.60); RDW 15.1 % (11.9-15.9); WHITE BLOOD COUNT 7.8 K/mm3 (4.0-10.0)
[2019-03-05 21:45] LABS: INR 1.01 (0.83-1.09); PROTHROMBIN TIME (PATIENT) 11.9 SEC (9.7-13.0)
[2019-03-05 21:46] LABS: EPI CELLS 0.9 /HPF (0-5/HPF); HYALINE CASTS 31 /lpf (0-8); PH,URINE 5.5 (5.0-8.0); URINE APPEARANCE TURBID; URINE BACTERIA 532.4 /hpf (NEGATIVE); URINE BILIRUBIN NEGATIVE (NEGATIVE); URINE COLOR RED; URINE GLUCOSE (UA) NEGATIVE (NEGATIVE); URINE KETONE NEGATIVE (NEGATIVE); URINE LEUK ESTERASE 2+ (NEGATIVE); URINE NITRITE POSITIVE (NEGATIVE); URINE PROTEIN 2+ (NEGATIVE); URINE RBC 4621 /hpf (0-4); URINE UROBILINOGEN 0.2 mg/dL (0.2-1.0); URINE WBC 25 /hpf (0-5)
[2019-03-05 21:47] LABS: ACTIVATED PTT 31.2 SECONDS (25.2-36.5)
[2019-03-05 22:00] LABS: ANION GAP 4 MMOL/L (8-16); BLOOD UREA NITROGEN 21.7 mg/dL (7-18); CALCIUM 9.3 mg/dL (8.5-10.1); CHLORIDE 102 mmol/L (98-107); CO2 31 mmol/L (21-32); CREATININE 1.2 mg/dL (0.55-1.3); GLUCOSE,RANDOM 116 mg/dL (74-106); POTASSIUM 4.1 mmol/L (3.5-5.1); SODIUM 137 mmol/L (136-145)
[2019-03-05] MEDS ORDERED: CEPHALEXIN MONOHYDRATE 500 MG CAPSULE (UD) PO ONE (22:25)
[2019-03-05] MEDS ORDERED: CEPHALEXIN MONOHYDRATE 500 MG CAPSULE (UD) ONE (22:39)
[2019-03-05 23:30] VITALS: BP 148/79; PULSE 58; TEMP 97.6
--- NOTE | 2019-03-06 11:58 | EKG ---
Test Reason : Blood Pressure : / mmHG Vent. Rate : 053 BPM Atrial Rate : 053 BPM P-R Int : 178 ms QRS Dur : 090 ms QT Int : 410 ms P-R-T Axes : 075 082 043 degrees QTc Int : 384 ms SINUS BRADYCARDIA OTHERWISE NORMAL ECG WHEN COMPARED WITH ECG OF 14-FEB-2019 14:55, NONSPECIFIC T WAVE ABNORMALITY NOW EVIDENT IN ANTERIOR LEADS Confirmed by JAMILAH PAPPAS MD ([id number]) on 03/06/2019 11:58:06 AM Referred By: Confirmed By:JAMILAH PAPPAS MD
== END 2019-03-06 00:17 | disposition home or self-care (01) ==
LOC: JER 20:25
DX: N30.81 Other cystitis with hematuria (principal); Z87.891 Personal history of nicotine dependence; Z85.46 Personal history of malignant neoplasm of prostate; E11.9 Type 2 diabetes mellitus without complications; F19.10 Other psychoactive substance abuse, uncomplicated
CPT/HCPCS: 36415; 80048; 81003; 84484; 85025; 85610; 85730; 86850; 86900; 86901; 87086; 87186; 93005; 93010; 99284-25

== ENCOUNTER 2021-03-21 12:39 | Inpatient (IN) | payer OTHER ==
[2021-03-21] MEDS ORDERED: NICOTINE 10 MG CARTRIDGE (INHALER) IH PRN (13:30)
[2021-03-21] MEDS ORDERED: MENTHOL/PHENOL 1 EACH UD MM PRN (13:30)
[2021-03-21] MEDS ORDERED: methaDONE HCL 10 MG TABLET (FOR DETOX USE ONLY) PO ONE (13:30)
[2021-03-21] MEDS ORDERED: MAGNESIUM HYDROX 2400MG/30ML ORAL SUSPENSION 30 ML CUP PO PRN (13:30)
[2021-03-21] MEDS ORDERED: ACETAMINOPHEN 325 MG TABLET (FP) PO PRN ×2 (13:30)
[2021-03-21] MEDS ORDERED: BISMUTH SUBSALICYLATE 262 MG/15 ML BTL PO PRN (13:30)
[2021-03-21] MEDS ORDERED: IBUPROFEN 400 MG TABLET (FP) PO PRN (13:30)
[2021-03-21] MEDS ORDERED: MAGNESIUM CITRATE 300 ML BOTTLE PO PRN (13:30)
[2021-03-21] MEDS ORDERED: chlordiazePOXIDE HCL 25 MG CAPSULE PO PRN (13:30)
[2021-03-21] MEDS ORDERED: MAG HYDROX/AL HYDROX/SIMETH 30 ML UNIT-DOSE CUP PO PRN (13:30)
[2021-03-21] MEDS ORDERED: ONDANSETRON *ODT* 4 MG TABLET SL PRN (13:30)
[2021-03-21] MEDS ORDERED: cloNIDine HCL 0.1 MG TABLET PO PRN (13:30)
[2021-03-21] MEDS ORDERED: METHOCARBAMOL 500 MG TABLET PO PRN (13:30)
[2021-03-21] MEDS ORDERED: hydrOXYzine PAMOATE 25 MG CAPSULE (FP) PO SCH (14:00)
[2021-03-21 14:02] VITALS: BMI 22.1
[2021-03-21 16:40] LABS: HEMATOCRIT 40.5 % (35.4-49); HEMOGLOBIN 13.7 GM/dL (11.7-16.9); MCH 33.6 pg (25.7-33.7); MCHC 33.9 g/dl (32.0-35.9); MEAN CELL VOLUME 99.1 fl (80-96); MEAN PLT VOLUME 7.6 fl (7.5-11.1); PLATELET COUNT 330 10^3/uL (134-434); RBC 4.09 M/mm3 (4.00-5.60); RDW 14.5 % (11.9-15.9); WHITE BLOOD COUNT 5.5 K/mm3 (4.0-10.0)
[2021-03-21 16:42] LABS: CALCIUM 9.8 mg/dL (8.5-10.1)
[2021-03-21 16:43] LABS: ALBUMIN 3.5 g/dl (3.4-5.0); BLOOD UREA NITROGEN 12.8 mg/dL (7-18)
[2021-03-21 16:47] LABS: BILIRUBIN,TOTAL 0.6 mg/dL (0.2-1); TOT PROT 7.6 g/dl (6.4-8.2)
[2021-03-21] MEDS: MELATONIN 5 MG TABLETS PO SCH (22:43)
[2021-03-21] MEDS: THIAMINE HCL 100 MG TABLET (FP) PO SCH (22:43)
[2021-03-21] MEDS: chlordiazePOXIDE HCL 25 MG CAPSULE PO SCH (22:44)
[2021-03-22] MEDS ORDERED: methaDONE HCL 10 MG TABLET ONE (04:25)
[2021-03-22] MEDS ORDERED: methaDONE HCL 40 MG DISPERSABLE TABLET ONE (04:25)
[2021-03-22] MEDS: chlordiazePOXIDE HCL 25 MG CAPSULE PO SCH ×4 (05:12→22:36)
[2021-03-22] MEDS ORDERED: methaDONE HCL 10 MG TABLET PO SCH (06:00)
[2021-03-22] MEDS: PRENATAL VITAMINS W/ FOLIC ACID TABLET (FP) PO SCH (10:20)
[2021-03-22] MEDS: CLOPIDOGREL BISULFATE 75 MG TABLET (FP) PO SCH (11:39)
[2021-03-22] MEDS: TAMSULOSIN HCL 0.4 MG CAP PO SCH (11:39)
[2021-03-22] MEDS: ASPIRIN COATED 81 MG TABLET.EC PO SCH (11:39)
[2021-03-22] MEDS: THIAMINE HCL 100 MG TABLET (FP) PO SCH (22:36)
[2021-03-22] MEDS: MELATONIN 5 MG TABLETS PO SCH (22:36)
[2021-03-23] MEDS ORDERED: methaDONE HCL 40 MG DISPERSABLE TABLET ONE (04:49)
[2021-03-23] MEDS ORDERED: methaDONE HCL 10 MG TABLET ONE (04:49)
[2021-03-23] MEDS: chlordiazePOXIDE HCL 25 MG CAPSULE PO SCH ×4 (05:35→22:43)
[2021-03-23] MEDS: TAMSULOSIN HCL 0.4 MG CAP PO SCH (07:56)
[2021-03-23] MEDS ORDERED: methaDONE HCL 10 MG TABLET (FOR DETOX USE ONLY) PO ONE (10:00)
[2021-03-23] MEDS: ASPIRIN COATED 81 MG TABLET.EC PO SCH (10:10)
[2021-03-23] MEDS: CLOPIDOGREL BISULFATE 75 MG TABLET (FP) PO SCH (10:10)
[2021-03-23] MEDS: PRENATAL VITAMINS W/ FOLIC ACID TABLET (FP) PO SCH (10:10)
[2021-03-23] MEDS: THIAMINE HCL 100 MG TABLET (FP) PO SCH (22:43)
[2021-03-23] MEDS: MELATONIN 5 MG TABLETS PO SCH (22:43)
[2021-03-24] MEDS ORDERED: chlordiazePOXIDE HCL 10 MG CAPSULE PO PRN
[2021-03-24] MEDS ORDERED: methaDONE HCL 10 MG TABLET ONE (04:37)
[2021-03-24] MEDS ORDERED: methaDONE HCL 40 MG DISPERSABLE TABLET ONE (04:37)
[2021-03-24] MEDS: chlordiazePOXIDE HCL 10 MG CAPSULE PO SCH ×3 (06:33→18:31)
[2021-03-24] MEDS: ASPIRIN COATED 81 MG TABLET.EC PO SCH (10:09)
[2021-03-24] MEDS: TAMSULOSIN HCL 0.4 MG CAP PO SCH (10:10)
[2021-03-24] MEDS: CLOPIDOGREL BISULFATE 75 MG TABLET (FP) PO SCH (10:10)
[2021-03-24] MEDS: PRENATAL VITAMINS W/ FOLIC ACID TABLET (FP) PO SCH (10:10)
[2021-03-24 19:55] VITALS: BP 134/72; PULSE 80; TEMP 96.7
[2021-03-25] MEDS ORDERED: chlordiazePOXIDE HCL 10 MG CAPSULE PO SCH (05:00)
[2021-03-25] MEDS ORDERED: methaDONE HCL 10 MG TABLET (FOR DETOX USE ONLY) PO ONE (10:00)
[2021-03-26] MEDS ORDERED: chlordiazePOXIDE HCL 10 MG CAPSULE PO ONE (05:00)
== END 2021-03-24 20:02 | disposition home or self-care (01) | DRG 773 ==
LOC: YASAS 12:39 → Y3N 14:29
PROVIDERS: ADMIT Allergy & Immunology; ATTEND Allergy & Immunology
PROC: HZ2ZZZZ Detoxification Services for Substance Abuse Treatment (ICD-10-PCS; principal; 2021-03-21)
DX: F10.230 Alcohol dependence with withdrawal, uncomplicated (principal); F11.20 Opioid dependence, uncomplicated; F14.10 Cocaine abuse, uncomplicated; F12.10 Cannabis abuse, uncomplicated; F17.210 Nicotine dependence, cigarettes, uncomplicated; K21.9 Gastro-esophageal reflux disease without esophagitis; M16.11 Unilateral primary osteoarthritis, right hip; W19.XXXA Unspecified fall, initial encounter; Y92.238 Other place in hospital as the place of occurrence of the external cause; R74.01 Elevation of levels of liver transaminase levels; R74.8 Abnormal levels of other serum enzymes; Z85.46 Personal history of malignant neoplasm of prostate; Z86.73 Personal history of transient ischemic attack (TIA), and cerebral infarction without residual deficits; Z99.89 Dependence on other enabling machines and devices; Z79.02 Long term (current) use of antithrombotics/antiplatelets; Z79.82 Long term (current) use of aspirin
CPT/HCPCS: 36415; 71045-TC-FY; 80053; 85027; 86780; 93005; 93010; C9803; J0735; U0003; U0005

== ENCOUNTER 2021-05-31 12:03 | Inpatient (IN) | payer OTHER ==
[2021-05-31] MEDS ORDERED: MAGNESIUM HYDROX 2400MG/30ML ORAL SUSPENSION 30 ML CUP PO PRN (12:50)
[2021-05-31] MEDS ORDERED: MAG HYDROX/AL HYDROX/SIMETH 30 ML UNIT-DOSE CUP PO PRN (12:50)
[2021-05-31] MEDS ORDERED: IBUPROFEN 400 MG TABLET (FP) PO PRN (12:50)
[2021-05-31] MEDS ORDERED: BISMUTH SUBSALICYLATE 262 MG/15 ML BTL PO PRN (12:50)
[2021-05-31] MEDS ORDERED: chlordiazePOXIDE HCL 25 MG CAPSULE PO PRN (12:50)
[2021-05-31] MEDS ORDERED: LOPERAMIDE HCL 2 MG CAPSULE PO PRN (12:50)
[2021-05-31] MEDS ORDERED: BENZOCAINE/MENTHOL (CHLORASEPTIC ) LOZENGE MM PRN (12:50)
[2021-05-31] MEDS ORDERED: MAGNESIUM CITRATE 300 ML BOTTLE PO PRN (12:50)
[2021-05-31] MEDS ORDERED: ONDANSETRON *ODT* 4 MG TABLET SL PRN (12:50)
[2021-05-31] MEDS ORDERED: DICYCLOMINE HCL 10 MG CAPSULE PO PRN (12:50)
[2021-05-31] MEDS ORDERED: ACETAMINOPHEN 325 MG TABLET (FP) PO PRN ×2 (12:50)
[2021-05-31] MEDS ORDERED: NICOTINE 10 MG CARTRIDGE (INHALER) IH PRN (12:50)
[2021-05-31] MEDS ORDERED: NALOXONE (NARCAN) HCL 4 MG/0.1 ML SPRAY NS SCH (13:00)
[2021-05-31 13:22] VITALS: BMI 22.9
[2021-05-31] MEDS: PRENATAL VITAMINS W/ FOLIC ACID TABLET (FP) PO SCH (15:25)
[2021-05-31] MEDS: hydrOXYzine PAMOATE 25 MG CAPSULE (FP) PO SCH ×3 (15:30→22:00)
[2021-05-31] MEDS: chlordiazePOXIDE HCL 25 MG CAPSULE PO SCH (17:42)
[2021-05-31] MEDS: MELATONIN 5 MG TABLETS PO SCH (22:00)
[2021-05-31] MEDS: THIAMINE HCL 100 MG TABLET (FP) PO SCH (22:01)
[2021-06-01] MEDS: chlordiazePOXIDE HCL 25 MG CAPSULE PO SCH ×5 (00:09→22:15)
[2021-06-01] MEDS: hydrOXYzine PAMOATE 25 MG CAPSULE (FP) PO SCH ×5 (05:43→22:15)
[2021-06-01] MEDS ORDERED: methaDONE HCL 40 MG DISPERSABLE TABLET ONE (08:39)
[2021-06-01] MEDS ORDERED: methaDONE HCL 10 MG TABLET ONE (08:39)
[2021-06-01] MEDS: TAMSULOSIN HCL 0.4 MG CAP PO SCH (08:44)
[2021-06-01] MEDS ORDERED: methaDONE HCL 40 MG DISPERSABLE TABLET PO SCH (10:00)
[2021-06-01] MEDS: ASPIRIN COATED 81 MG TABLET.EC PO SCH (10:20)
[2021-06-01] MEDS: PRENATAL VITAMINS W/ FOLIC ACID TABLET (FP) PO SCH (10:20)
[2021-06-01] MEDS: METHOCARBAMOL 500 MG TABLET PO PRN (10:20)
[2021-06-01] MEDS: CLOPIDOGREL BISULFATE 75 MG TABLET (FP) PO SCH (10:20)
[2021-06-01 10:43] LABS: HEMATOCRIT 40.9 % (35.4-49); HEMOGLOBIN 13.4 GM/dL (11.7-16.9); MCH 32.9 pg (25.7-33.7); MCHC 32.9 g/dl (32.0-35.9); MEAN CELL VOLUME 100.2 fl (80-96); MEAN PLT VOLUME 8.5 fl (7.5-11.1); PLATELET COUNT 271 10^3/uL (134-434); RBC 4.08 M/mm3 (4.00-5.60); RDW 14.8 % (11.9-15.9); WHITE BLOOD COUNT 4.2 K/mm3 (4.0-10.0)
[2021-06-01 10:51] LABS: BLOOD UREA NITROGEN 11.8 mg/dL (7-18)
[2021-06-01 10:53] LABS: ALBUMIN 3.2 g/dl (3.4-5.0)
[2021-06-01 10:56] LABS: CREATININE 0.9 mg/dL (0.55-1.3)
[2021-06-01 10:57] LABS: BILIRUBIN,TOTAL 0.5 mg/dL (0.2-1); TOT PROT 7.4 g/dl (6.4-8.2)
[2021-06-01] MEDS: THIAMINE HCL 100 MG TABLET (FP) PO SCH (22:15)
[2021-06-01] MEDS: MELATONIN 5 MG TABLETS PO SCH (22:16)
[2021-06-02] MEDS ORDERED: methaDONE HCL 10 MG TABLET ONE (04:18)
[2021-06-02] MEDS ORDERED: methaDONE HCL 40 MG DISPERSABLE TABLET ONE (04:18)
[2021-06-02] MEDS: chlordiazePOXIDE HCL 25 MG CAPSULE PO SCH ×4 (05:44→22:16)
[2021-06-02] MEDS: hydrOXYzine PAMOATE 25 MG CAPSULE (FP) PO SCH ×5 (05:44→22:20)
[2021-06-02] MEDS ORDERED: methaDONE HCL 10 MG TABLET PO SCH (06:00)
[2021-06-02] MEDS: TAMSULOSIN HCL 0.4 MG CAP PO SCH (07:53)
[2021-06-02] MEDS: ASPIRIN COATED 81 MG TABLET.EC PO SCH (10:51)
[2021-06-02] MEDS: PRENATAL VITAMINS W/ FOLIC ACID TABLET (FP) PO SCH (10:51)
[2021-06-02] MEDS: CLOPIDOGREL BISULFATE 75 MG TABLET (FP) PO SCH (10:51)
[2021-06-02 14:08] LABS: SARS-CoV-2 NAA Not Detected (Not Detected)
[2021-06-02] MEDS: METHOCARBAMOL 500 MG TABLET PO PRN (17:41)
[2021-06-02] MEDS: MELATONIN 5 MG TABLETS PO SCH (22:16)
[2021-06-02] MEDS: THIAMINE HCL 100 MG TABLET (FP) PO SCH (22:16)
[2021-06-03] MEDS ORDERED: chlordiazePOXIDE HCL 10 MG CAPSULE PO PRN
[2021-06-03] MEDS ORDERED: methaDONE HCL 40 MG DISPERSABLE TABLET ONE (04:29)
[2021-06-03] MEDS ORDERED: methaDONE HCL 10 MG TABLET ONE (04:29)
[2021-06-03] MEDS ORDERED: chlordiazePOXIDE HCL 10 MG CAPSULE PO SCH (05:00)
[2021-06-03] MEDS: hydrOXYzine PAMOATE 25 MG CAPSULE (FP) PO SCH (06:16)
[2021-06-03] MEDS: METHOCARBAMOL 500 MG TABLET PO PRN (06:17)
[2021-06-03 09:24] VITALS: BP 98/66; PULSE 72; TEMP 97.3
[2021-06-04] MEDS ORDERED: chlordiazePOXIDE HCL 10 MG CAPSULE PO SCH (05:00)
[2021-06-05] MEDS ORDERED: chlordiazePOXIDE HCL 10 MG CAPSULE PO ONE (05:00)
== END 2021-06-03 10:06 | disposition left against medical advice (07) | DRG 770 ==
LOC: YASAS 12:03 → Y6N 14:35
PROVIDERS: ADMIT Allergy & Immunology; ATTEND Allergy & Immunology
PROC: HZ2ZZZZ Detoxification Services for Substance Abuse Treatment (ICD-10-PCS; principal; 2021-05-31)
DX: F10.230 Alcohol dependence with withdrawal, uncomplicated (principal); F11.23 Opioid dependence with withdrawal; F12.20 Cannabis dependence, uncomplicated; F17.210 Nicotine dependence, cigarettes, uncomplicated; E11.9 Type 2 diabetes mellitus without complications; M17.11 Unilateral primary osteoarthritis, right knee; M16.0 Bilateral primary osteoarthritis of hip; W05.0XXA Fall from non-moving wheelchair, initial encounter; Y92.238 Other place in hospital as the place of occurrence of the external cause; Z85.46 Personal history of malignant neoplasm of prostate; Z86.73 Personal history of transient ischemic attack (TIA), and cerebral infarction without residual deficits; Z28.310 Unvaccinated for COVID-19; Z99.89 Dependence on other enabling machines and devices
CPT/HCPCS: 36415; 80053; 82962; 85027; 86780; 87811; C9803-CS; U0003; U0005

== ENCOUNTER 2021-07-25 13:04 | Inpatient (IN) | payer OTHER ==
[2021-07-25 13:55] VITALS: BMI 23.7
[2021-07-25] MEDS ORDERED: BENZOCAINE/MENTHOL (CHLORASEPTIC ) LOZENGE MM PRN (17:42)
[2021-07-25] MEDS ORDERED: NICOTINE 10 MG CARTRIDGE (INHALER) IH PRN (17:42)
[2021-07-25] MEDS ORDERED: ONDANSETRON *ODT* 4 MG TABLET SL PRN (17:42)
[2021-07-25] MEDS ORDERED: IBUPROFEN 600 MG TABLET (FP) PO PRN (17:42)
[2021-07-25] MEDS ORDERED: MAGNESIUM HYDROX 2400MG/30ML ORAL SUSPENSION 30 ML CUP PO PRN (17:42)
[2021-07-25] MEDS ORDERED: BISMUTH SUBSALICYLATE 524 MG/30 ML PO PRN (17:42)
[2021-07-25] MEDS ORDERED: LOPERAMIDE HCL 2 MG CAPSULE PO PRN (17:42)
[2021-07-25] MEDS ORDERED: MAGNESIUM CITRATE 300 ML BOTTLE PO PRN (17:42)
[2021-07-25] MEDS ORDERED: ACETAMINOPHEN 325 MG TABLET (FP) PO PRN ×2 (17:42)
[2021-07-25] MEDS ORDERED: DICYCLOMINE HCL 10 MG CAPSULE PO PRN (17:42)
[2021-07-25] MEDS ORDERED: MAG HYDROX/AL HYDROX/SIMETH 30 ML UNIT-DOSE CUP PO PRN (17:42)
[2021-07-25] MEDS ORDERED: IBUPROFEN 400 MG TABLET (FP) PO PRN (17:42)
[2021-07-25] MEDS: hydrOXYzine PAMOATE 25 MG CAPSULE (FP) PO SCH ×2 (21:52→21:53)
[2021-07-25] MEDS: METHOCARBAMOL 500 MG TABLET PO PRN (21:53)
[2021-07-25] MEDS ORDERED: MELATONIN 5 MG TABLETS PO SCH (22:00)
[2021-07-25] MEDS ORDERED: THIAMINE HCL 100 MG TABLET (FP) PO SCH (22:00)
[2021-07-26] MEDS: hydrOXYzine PAMOATE 25 MG CAPSULE (FP) PO SCH ×3 (05:40→13:15)
[2021-07-26] MEDS ORDERED: methaDONE HCL 10 MG TABLET PO ONE (09:11)
[2021-07-26 09:23] VITALS: TEMP 97.1
[2021-07-26] MEDS ORDERED: PRENATAL VITAMINS W/ FOLIC ACID TABLET (FP) PO SCH (10:00)
[2021-07-26] MEDS ORDERED: amLODIPine BESYLATE 10 MG TABLET (FP) PO SCH (10:00)
[2021-07-26] MEDS ORDERED: NICOTINE 14 MG/24 HOURS TOPICAL PATCH TD SCH (10:00)
[2021-07-26] MEDS ORDERED: CLOPIDOGREL BISULFATE 75 MG TABLET (FP) PO SCH (10:00)
[2021-07-26] MEDS ORDERED: TAMSULOSIN HCL 0.4 MG CAP PO SCH (10:00)
[2021-07-26] MEDS ORDERED: ASPIRIN COATED 81 MG TABLET.EC PO SCH (10:00)
[2021-07-26] MEDS ORDERED: methaDONE HCL 10 MG TABLET ONE (10:46)
[2021-07-26] MEDS ORDERED: methaDONE HCL 40 MG DISPERSABLE TABLET ONE (10:46)
[2021-07-26] MEDS: METHOCARBAMOL 500 MG TABLET PO PRN (11:03)
[2021-07-26 13:20] VITALS: BP 147/79; PULSE 56
[2021-07-26 14:20] LABS: CALCIUM 9.6 mg/dL (8.5-10.1); CREATININE 0.9 mg/dL (0.55-1.3)
[2021-07-26 14:21] LABS: ALBUMIN 2.7 g/dl (3.4-5.0); BLOOD UREA NITROGEN 8.7 mg/dL (7-18)
[2021-07-26 14:22] LABS: BILIRUBIN,TOTAL 0.6 mg/dL (0.2-1); TOT PROT 6.7 g/dl (6.4-8.2)
[2021-07-26 14:36] LABS: HEMATOCRIT 38.5 % (35.4-49); HEMOGLOBIN 12.9 GM/dL (11.7-16.9); MCH 33.2 pg (25.7-33.7); MCHC 33.5 g/dl (32.0-35.9); MEAN CELL VOLUME 98.9 fl (80-96); MEAN PLT VOLUME 7.8 fl (7.5-11.1); PLATELET COUNT 482 10^3/uL (134-434); RBC 3.89 M/mm3 (4.00-5.60); WHITE BLOOD COUNT 4.5 K/mm3 (4.0-10.0)
[2021-07-27] MEDS ORDERED: methaDONE HCL 10 MG TABLET PO SCH (06:00)
== END 2021-07-26 14:25 | disposition home or self-care (01) | DRG 773 ==
LOC: YASAS 13:04 → Y6N 20:28
PROVIDERS: ADMIT Allergy & Immunology; ATTEND Surgery
PROC: HZ2ZZZZ Detoxification Services for Substance Abuse Treatment (ICD-10-PCS; principal; 2021-07-25)
DX: F10.230 Alcohol dependence with withdrawal, uncomplicated (principal); F11.23 Opioid dependence with withdrawal; F14.10 Cocaine abuse, uncomplicated; F12.10 Cannabis abuse, uncomplicated; F17.210 Nicotine dependence, cigarettes, uncomplicated; I10 Essential (primary) hypertension; E78.5 Hyperlipidemia, unspecified; E11.9 Type 2 diabetes mellitus without complications; K21.9 Gastro-esophageal reflux disease without esophagitis; M16.11 Unilateral primary osteoarthritis, right hip; Z99.89 Dependence on other enabling machines and devices; Z85.46 Personal history of malignant neoplasm of prostate; Z86.73 Personal history of transient ischemic attack (TIA), and cerebral infarction without residual deficits; Z28.310 Unvaccinated for COVID-19
CPT/HCPCS: 36415; 80053; 85027; 86780; 87811; C9803-CS; U0003; U0005

== ENCOUNTER 2023-08-16 22:26 | Inpatient (IN) | payer OTHER ==
[2023-08-17 01:12] LABS: BASO % 0.5 % (0-2.0); EOS % 0.7 % (0-4.5); HEMATOCRIT 33.6 % (35.4-49); MCH 28.6 pg (25.7-33.7); MCHC 32.8 g/dl (32.0-35.9); MEAN CELL VOLUME 87.2 fl (80-96); MEAN PLT VOLUME 7.6 fl (7.5-11.1); MONO % 9.6 % (3.8-10.2); NEUT % 57.2 % (42.8-82.8); PLATELET COUNT 323 10^3/uL (134-434); RBC 3.86 M/mm3 (4.00-5.60); RDW 17.1 % (11.9-15.9); WHITE BLOOD COUNT 8.6 K/mm3 (4.0-10.0)
[2023-08-17 01:23] LABS: INR 0.96 (0.83-1.09); PROTHROMBIN TIME (PATIENT) 11.1 SEC (9.7-13.0)
[2023-08-17 01:26] LABS: ACTIVATED PTT 23.1 SECONDS (25.2-36.5)
[2023-08-17 01:29] LABS: POTASSIUM 3.8 mmol/L (3.5-5.1)
[2023-08-17 01:32] LABS: ALBUMIN 3.4 g/dl (3.4-5.0); BLOOD UREA NITROGEN 60.9 mg/dL (7-18)
[2023-08-17 01:35] LABS: CREATININE 5.1 mg/dL (0.55-1.3)
[2023-08-17 01:36] LABS: BILIRUBIN,TOTAL 0.6 mg/dL (0.2-1); CALCIUM 8.6 mg/dL (8.5-10.1); TOT PROT 7.4 g/dl (6.4-8.2)
[2023-08-17 01:39] LABS: N-TERMINAL BNP 479.1 pg/ml (5-125)
[2023-08-17] MEDS ORDERED: ACETAMINOPHEN INJECTION 100 ML IVPB ONE (02:45)
[2023-08-17 03:15] LABS: EPI CELLS 2 /uL (0-25.1); HYALINE CASTS 0 /uL (0-3.1); URINE APPEARANCE CLEAR; URINE BACTERIA 7 /uL (0-1359); URINE BILIRUBIN NEGATIVE (NEGATIVE); URINE COLOR YELLOW; URINE GLUCOSE (UA) NEGATIVE (NEGATIVE); URINE KETONE NEGATIVE (NEGATIVE); URINE LEUK ESTERASE NEGATIVE (NEGATIVE); URINE NITRITE NEGATIVE (NEGATIVE); URINE PROTEIN TRACE (NEGATIVE); URINE RBC 30 /uL (0-23.9); URINE UROBILINOGEN 0.2 mg/dL (0.2-1.0); URINE WBC 26 /uL (0-25.8)
[2023-08-17] MEDS: ACETAMINOPHEN 1000 MG/100 ML BAG IVPB ONE (05:42)
[2023-08-17] MEDS: SODIUM CHLORIDE 0.9% 500 ML INFUS.BAG IV ONE (05:42)
[2023-08-17] MEDS ORDERED: ASPIRIN 81 MG CHEWABLE TABLETS ONE (06:47)
[2023-08-17] MEDS: ASPIRIN 81 MG CHEWABLE TABLETS PO ONE (06:53)
[2023-08-17] MEDS: SODIUM CHLORIDE 1,000 ML IV SCH (08:56)
[2023-08-17 12:59] LABS: EPI CELLS 5 /uL (0-25.1); HYALINE CASTS 1 /uL (0-3.1); PH,URINE 5.5 (5.0-8.0); URINE APPEARANCE CLEAR; URINE BACTERIA 4 /uL (0-1359); URINE BILIRUBIN NEGATIVE (NEGATIVE); URINE COLOR YELLOW; URINE GLUCOSE (UA) TRACE (NEGATIVE); URINE KETONE NEGATIVE (NEGATIVE); URINE LEUK ESTERASE NEGATIVE (NEGATIVE); URINE NITRITE NEGATIVE (NEGATIVE); URINE PROTEIN TRACE (NEGATIVE); URINE RBC 38 /uL (0-23.9); URINE UROBILINOGEN 0.2 mg/dL (0.2-1.0); URINE WBC 24 /uL (0-25.8)
[2023-08-17] MEDS ORDERED: HEPARIN NA (PORCINE) 5,000 UNITS/ML 1ML VIAL ONE (13:55)
[2023-08-17] MEDS: HEPARIN NA (PORCINE) 5,000 UNITS/ML 1ML VIAL SQ SCH (14:00)
[2023-08-17] MEDS: INSULIN ASPART SLIDING SCALE (NOVOLOG) 1 VIAL SQ SCH (16:16)
[2023-08-17] MEDS ORDERED: cloNIDine HCL 0.1 MG TABLET PO PRN (16:28)
[2023-08-17] MEDS: methaDONE HCL 10 MG TABLET PO ONE (17:33)
[2023-08-17] MEDS ORDERED: methaDONE HCL 10 MG TABLET ONE (17:33)
[2023-08-17 23:28] VITALS: BMI 23.5
[2023-08-18 07:52] LABS: BASO % 1.4 % (0-2.0); EOS % 0.5 % (0-4.5); HEMATOCRIT 32.9 % (35.4-49); HEMOGLOBIN 10.7 GM/dL (11.7-16.9); LYMPH % 42.8 % (8-40); MCH 28.8 pg (25.7-33.7); MCHC 32.6 g/dl (32.0-35.9); MEAN CELL VOLUME 88.5 fl (80-96); MONO % 12.4 % (3.8-10.2); NEUT % 42.9 % (42.8-82.8); PLATELET COUNT 318 10^3/uL (134-434); RBC 3.72 M/mm3 (4.00-5.60); RDW 16.6 % (11.9-15.9)
[2023-08-18 08:07] LABS: POTASSIUM 4.5 mmol/L (3.5-5.1)
[2023-08-18 08:11] LABS: CHOLESTEROL 157 mg/dL (50-200)
[2023-08-18 08:13] LABS: LDL CHOLESTEROL (ONLY SJRH) 83 mg/dL (5-100)
[2023-08-18 08:15] LABS: HDL CHOLESTEROL 67 mg/dL (40-60)
[2023-08-18 08:18] LABS: ALBUMIN 2.9 g/dl (3.4-5.0); CALCIUM 8.3 mg/dL (8.5-10.1)
[2023-08-18 08:19] LABS: MAGNESIUM 2.3 mg/dL (1.8-2.4)
[2023-08-18 08:21] LABS: CREATININE 1.1 mg/dL (0.55-1.3)
[2023-08-18 08:22] LABS: BILIRUBIN,TOTAL 0.6 mg/dL (0.2-1); TOT PROT 6.5 g/dl (6.4-8.2)
[2023-08-18 08:38] LABS: BLOOD UREA NITROGEN 28.6 mg/dL (7-18)
[2023-08-18] MEDS: amLODIPine BESYLATE 5 MG TABLET (FP) PO SCH (10:30)
[2023-08-18] MEDS: PANTOPRAZOLE 40 MG TABLET PO SCH (10:30)
[2023-08-18] MEDS: ATORVASTATIN CA 80 MG TABLET (FP) PO SCH (10:30)
[2023-08-18] MEDS: ASPIRIN COATED 81 MG TABLET.EC PO SCH (10:30)
[2023-08-18] MEDS: LOSARTAN POTASSIUM 25 MG TABLET PO SCH (12:09)
[2023-08-18] MEDS: SODIUM PHOSPHATE - 30 MM in SODIUM CHLORIDE 250 ML IVPB ONE (12:48)
[2023-08-18] MEDS: TAMSULOSIN HCL 0.4 MG CAP PO SCH (18:39)
[2023-08-19 07:48] LABS: POTASSIUM 4.3 mmol/L (3.5-5.1)
[2023-08-19 07:53] LABS: ALBUMIN 2.7 g/dl (3.4-5.0); BLOOD UREA NITROGEN 16.8 mg/dL (7-18); CALCIUM 8.7 mg/dL (8.5-10.1)
[2023-08-19 07:55] LABS: CREATININE 0.9 mg/dL (0.55-1.3)
[2023-08-19 07:57] LABS: BILIRUBIN,TOTAL 0.5 mg/dL (0.2-1); TOT PROT 5.9 g/dl (6.4-8.2)
[2023-08-19] MEDS: methaDONE HCL 10 MG TABLET PO ONE (09:38)
[2023-08-19] MEDS: NAPH,MB-DB/K PH,MBDB POWDER PACKET PO ONE ×2 (09:39→12:44)
[2023-08-20 05:50] VITALS: PULSE 52; TEMP 98.2
[2023-08-20 08:38] LABS: POTASSIUM 4.5 mmol/L (3.5-5.1)
[2023-08-20 08:52] LABS: CALCIUM 8.5 mg/dL (8.5-10.1)
[2023-08-20 08:53] LABS: ALBUMIN 2.7 g/dl (3.4-5.0); BLOOD UREA NITROGEN 12.7 mg/dL (7-18); MAGNESIUM 1.8 mg/dL (1.8-2.4)
[2023-08-20 08:56] LABS: CREATININE 0.9 mg/dL (0.55-1.3); PHOSPHOROUS 2.1 mg/dL (2.5-4.9)
[2023-08-20 08:57] LABS: BILIRUBIN,TOTAL 0.3 mg/dL (0.2-1)
[2023-08-20 11:34] VITALS: BP 124/77; RESP 18
[2023-08-20] MEDS: NAPH,MB-DB/K PH,MBDB POWDER PACKET PO ONE (12:47)
[2023-08-21] MEDS ORDERED: methaDONE HCL 10 MG TABLET PO ONE (10:00)
== END 2023-08-20 13:30 | disposition other institution (70) | DRG 469 ==
LOC: JER 22:26 → JERBED 08-17 06:10 → OBSVTOIN 08-17 13:08 → J4W 08-17 18:24
PROVIDERS: ADMIT Internal Medicine; ATTEND Internal Medicine
DX: N17.9 Acute kidney failure, unspecified (principal); E11.9 Type 2 diabetes mellitus without complications; F10.10 Alcohol abuse, uncomplicated; I10 Essential (primary) hypertension; F11.20 Opioid dependence, uncomplicated; E78.5 Hyperlipidemia, unspecified; I24.89 Other forms of acute ischemic heart disease; N40.0 Benign prostatic hyperplasia without lower urinary tract symptoms; K21.9 Gastro-esophageal reflux disease without esophagitis; R31.29 Other microscopic hematuria; E83.39 Other disorders of phosphorus metabolism
CPT/HCPCS: 0241U-QW; 36415; 71045-TC-FY; 76775-TC; 80048; 80053; 80061; 81003; 82570; 82962; 83036; 83735; 83880; 84100; 84300; 84484; 85025; 85610; 85730; 93005; 93010; 93306-TC; 97116-GP; 99285-25; G0378; J0131; J1644

== ENCOUNTER 2023-09-26 12:15 | Inpatient (IN) | payer OTHER ==
[2023-09-26 15:18] VITALS: BMI 23.3
[2023-09-26] MEDS ORDERED: chlordiazePOXIDE HCL 25 MG CAPSULE PO PRN (15:59)
[2023-09-26] MEDS ORDERED: NICOTINE POLACRILEX 2 MG GUM BUC PRN (16:07)
[2023-09-26] MEDS ORDERED: BENZONATATE 200 MG CAPSULE PO PRN (16:07)
[2023-09-26] MEDS ORDERED: BENZOCAINE/MENTHOL (CHLORASEPTIC ) LOZENGE MM PRN (16:07)
[2023-09-26] MEDS ORDERED: NALOXONE (NARCAN) HCL 4 MG/0.1 ML SPRAY NS PRN (16:07)
[2023-09-26] MEDS ORDERED: ONDANSETRON *ODT* 4 MG TABLET SL PRN (16:07)
[2023-09-26] MEDS ORDERED: guaiFENesin 600 MG TABLET.ER (FP) PO PRN (16:07)
[2023-09-26] MEDS ORDERED: IBUPROFEN 400 MG TABLET (FP) PO PRN (16:07)
[2023-09-26] MEDS ORDERED: NALOXONE HCL 0.4 MG/ML VIAL IM PRN (16:07)
[2023-09-26] MEDS ORDERED: IBUPROFEN 600 MG TABLET (FP) PO PRN (16:07)
[2023-09-26] MEDS ORDERED: LOPERAMIDE HCL 2 MG CAPSULE PO PRN (16:07)
[2023-09-26] MEDS ORDERED: POLYETHYLENE GLYCOL (HEALTHYLAX) 3350 17 GM PACKET PO PRN (16:07)
[2023-09-26] MEDS ORDERED: BISMUTH SUBSALICYLATE 524 MG/30 ML PO PRN (16:07)
[2023-09-26] MEDS ORDERED: MAGNESIUM HYDROX 2400MG/30ML ORAL SUSPENSION 30 ML CUP PO PRN (16:07)
[2023-09-26] MEDS ORDERED: DICYCLOMINE HCL 10 MG CAPSULE PO PRN (16:07)
[2023-09-26] MEDS ORDERED: NICOTINE POLACRILEX 2 MG LOZENGE BC PRN (16:07)
[2023-09-26] MEDS ORDERED: MAG HYDROX/AL HYDROX/SIMETH 30 ML UNIT-DOSE CUP PO PRN (16:07)
[2023-09-26] MEDS ORDERED: chlordiazePOXIDE HCL 25 MG CAPSULE ONE (16:48)
[2023-09-26] MEDS: chlordiazePOXIDE HCL 25 MG CAPSULE PO SCH (16:52)
[2023-09-26] MEDS: THIAMINE 100 MG TABLET PO SCH (22:23)
[2023-09-26] MEDS: ATORVASTATIN CA 80 MG TABLET (FP) PO SCH (22:23)
[2023-09-26] MEDS: MELATONIN 5 MG TABLETS PO SCH (22:23)
[2023-09-27] MEDS: FUROSEMIDE 20 MG TABLET (FP) PO SCH (05:29)
[2023-09-27] MEDS: TAMSULOSIN HCL 0.4 MG CAP PO SCH (08:21)
[2023-09-27] MEDS: PANTOPRAZOLE 40 MG TABLET PO SCH (10:21)
[2023-09-27] MEDS: ASPIRIN COATED 81 MG TABLET.EC PO SCH (10:22)
[2023-09-27] MEDS: PRENATAL VITAMINS W/ FOLIC ACID TABLET (FP) PO SCH (10:22)
[2023-09-27] MEDS: LOSARTAN POTASSIUM 25 MG TABLET PO SCH (10:22)
[2023-09-27 11:40] LABS: POTASSIUM 3.9 mmol/L (3.5-5.1)
[2023-09-27 11:41] LABS: HEMATOCRIT 32.7 % (35.4-49); HEMOGLOBIN 10.7 GM/dL (11.7-16.9); MCH 28.3 pg (25.7-33.7); MCHC 32.8 g/dl (32.0-35.9); MEAN CELL VOLUME 86.2 fl (80-96); MEAN PLT VOLUME 7.8 fl (7.5-11.1); PLATELET COUNT 380 10^3/uL (134-434); RDW 19.4 % (11.9-15.9); WHITE BLOOD COUNT 5.2 K/mm3 (4.0-10.0)
[2023-09-27 12:05] LABS: BLOOD UREA NITROGEN 12.6 mg/dL (7-18); CALCIUM 9.3 mg/dL (8.5-10.1)
[2023-09-27 12:10] LABS: BILIRUBIN,TOTAL 0.9 mg/dL (0.2-1); TOT PROT 6.4 g/dl (6.4-8.2)
[2023-09-28] MEDS: chlordiazePOXIDE HCL 25 MG CAPSULE PO SCH (05:48)
[2023-09-28] MEDS: methaDONE HCL 10 MG TABLET (FOR DETOX USE ONLY) PO ONE (10:21)
[2023-09-28] MEDS: METHOCARBAMOL 500 MG TABLET PO PRN (22:18)
[2023-09-28] MEDS: cloNIDine HCL 0.1 MG TABLET PO PRN (22:19)
[2023-09-29] MEDS ORDERED: chlordiazePOXIDE HCL 10 MG CAPSULE PO PRN
[2023-09-29] MEDS: chlordiazePOXIDE HCL 10 MG CAPSULE PO SCH (05:47)
[2023-09-30] MEDS: chlordiazePOXIDE HCL 10 MG CAPSULE PO SCH (05:36)
[2023-09-30] MEDS: methaDONE HCL 10 MG TABLET (FOR DETOX USE ONLY) PO ONE (10:07)
[2023-09-30 21:07] VITALS: RESP 16
[2023-09-30] MEDS: ACETAMINOPHEN 325 MG TABLET (FP) PO PRN (21:49)
[2023-10-01] MEDS: chlordiazePOXIDE HCL 10 MG CAPSULE PO ONE (05:40)
[2023-10-01 06:04] VITALS: TEMP 97.8
[2023-10-01 10:03] VITALS: BP 122/77; PULSE 66
== END 2023-10-01 09:50 | disposition home or self-care (01) | DRG 773 ==
LOC: YASAS 12:15 → Y3N 16:35
PROVIDERS: ADMIT Allergy & Immunology; ATTEND Surgery
PROC: HZ2ZZZZ Detoxification Services for Substance Abuse Treatment (ICD-10-PCS; principal; 2023-09-26)
DX: F10.230 Alcohol dependence with withdrawal, uncomplicated (principal); F11.20 Opioid dependence, uncomplicated; F14.20 Cocaine dependence, uncomplicated; F12.10 Cannabis abuse, uncomplicated; F17.210 Nicotine dependence, cigarettes, uncomplicated; I10 Essential (primary) hypertension; E11.9 Type 2 diabetes mellitus without complications; E78.5 Hyperlipidemia, unspecified; K21.9 Gastro-esophageal reflux disease without esophagitis; M16.11 Unilateral primary osteoarthritis, right hip; Z85.46 Personal history of malignant neoplasm of prostate; Z86.73 Personal history of transient ischemic attack (TIA), and cerebral infarction without residual deficits; Z56.0 Unemployment, unspecified
CPT/HCPCS: 36415; 80053; 80305; 82962; 83036; 85027; 86780; 93005; 93010

== ENCOUNTER 2023-10-20 13:23 | Inpatient (IN) | payer OTHER ==
[2023-10-20 15:37] VITALS: BMI 24.6
[2023-10-20] MEDS ORDERED: ACETAMINOPHEN 325 MG TABLET (FP) PO PRN (15:55)
[2023-10-20] MEDS ORDERED: BENZOCAINE/MENTHOL (CHLORASEPTIC ) LOZENGE MM PRN (15:55)
[2023-10-20] MEDS ORDERED: IBUPROFEN 400 MG TABLET (FP) PO PRN (15:55)
[2023-10-20] MEDS ORDERED: POLYETHYLENE GLYCOL (HEALTHYLAX) 3350 17 GM PACKET PO PRN (15:55)
[2023-10-20] MEDS ORDERED: MAGNESIUM HYDROX 2400MG/30ML ORAL SUSPENSION 30 ML CUP PO PRN (15:55)
[2023-10-20] MEDS ORDERED: BISMUTH SUBSALICYLATE 524 MG/30 ML PO PRN (15:55)
[2023-10-20] MEDS ORDERED: DICYCLOMINE HCL 10 MG CAPSULE PO PRN (15:55)
[2023-10-20] MEDS ORDERED: NICOTINE POLACRILEX 2 MG LOZENGE BC PRN (15:55)
[2023-10-20] MEDS ORDERED: guaiFENesin 600 MG TABLET.ER (FP) PO PRN (15:55)
[2023-10-20] MEDS ORDERED: NICOTINE POLACRILEX 2 MG GUM BUC PRN (15:55)
[2023-10-20] MEDS ORDERED: BENZONATATE 200 MG CAPSULE PO PRN (15:55)
[2023-10-20] MEDS ORDERED: ONDANSETRON *ODT* 4 MG TABLET SL PRN (15:55)
[2023-10-20] MEDS ORDERED: NALOXONE HCL 0.4 MG/ML VIAL IM PRN (15:55)
[2023-10-20] MEDS ORDERED: NALOXONE (NARCAN) HCL 4 MG/0.1 ML SPRAY NS PRN (15:55)
[2023-10-20] MEDS ORDERED: MAG HYDROX/AL HYDROX/SIMETH 30 ML UNIT-DOSE CUP PO PRN (15:55)
[2023-10-20] MEDS ORDERED: LOPERAMIDE HCL 2 MG CAPSULE PO PRN (15:55)
[2023-10-20] MEDS: LOSARTAN POTASSIUM 25 MG TABLET PO SCH ×2 (16:42→18:09)
[2023-10-20] MEDS: ASPIRIN COATED 81 MG TABLET.EC PO SCH (17:00)
[2023-10-20] MEDS: cloNIDine HCL 0.1 MG TABLET PO PRN (17:00)
[2023-10-20] MEDS ORDERED: cloNIDine HCL 0.1 MG TABLET ONE (17:16)
[2023-10-20] MEDS ORDERED: ASPIRIN 81 MG CHEWABLE TABLETS ONE (17:16)
[2023-10-20] MEDS: ATORVASTATIN CA 80 MG TABLET (FP) PO SCH (21:59)
[2023-10-20] MEDS: THIAMINE 100 MG TABLET PO SCH (22:00)
[2023-10-20] MEDS: methaDONE HCL 10 MG TABLET (FOR DETOX USE ONLY) PO ONE (22:00)
[2023-10-20] MEDS: MELATONIN 5 MG TABLETS PO SCH (22:00)
[2023-10-21 09:21] LABS: POTASSIUM 4.1 mmol/L (3.5-5.1)
[2023-10-21 09:29] LABS: ALBUMIN 2.8 g/dl (3.4-5.0); BLOOD UREA NITROGEN 9.4 mg/dL (7-18); CALCIUM 8.8 mg/dL (8.5-10.1)
[2023-10-21] MEDS: TAMSULOSIN HCL 0.4 MG CAP PO SCH (09:30)
[2023-10-21] MEDS: METHOCARBAMOL 500 MG TABLET PO PRN (09:31)
[2023-10-21] MEDS: FUROSEMIDE 40 MG TABLET (FP) PO SCH (09:31)
[2023-10-21] MEDS: PRENATAL VITAMINS W/ FOLIC ACID TABLET (FP) PO SCH (09:32)
[2023-10-21 09:33] LABS: PHOSPHOROUS 3.2 mg/dL (2.5-4.9)
[2023-10-21] MEDS: IBUPROFEN 600 MG TABLET (FP) PO PRN (17:16)
[2023-10-21] MEDS: diazePAM 5 MG TABLET PO PRN (17:17)
[2023-10-22] MEDS: methaDONE HCL 10 MG TABLET (FOR DETOX USE ONLY) PO ONE (10:24)
[2023-10-23 11:35] LABS: HEMATOCRIT 33.5 % (35.4-49); HEMOGLOBIN 10.6 GM/dL (11.7-16.9); MCH 27.1 pg (25.7-33.7); MCHC 31.6 g/dl (32.0-35.9); MEAN CELL VOLUME 85.9 fl (80-96); MEAN PLT VOLUME 7.6 fl (7.5-11.1); PLATELET COUNT 291 10^3/uL (134-434); RDW 20.9 % (11.9-15.9); WHITE BLOOD COUNT 3.9 K/mm3 (4.0-10.0)
[2023-10-23 11:37] LABS: POTASSIUM 4.1 mmol/L (3.5-5.1)
[2023-10-23 11:48] LABS: CALCIUM 9.3 mg/dL (8.5-10.1)
[2023-10-23 11:49] LABS: BLOOD UREA NITROGEN 10.6 mg/dL (7-18)
[2023-10-23 11:50] LABS: CREATININE 0.9 mg/dL (0.55-1.3)
[2023-10-23 11:51] LABS: BILIRUBIN,TOTAL 0.6 mg/dL (0.2-1)
[2023-10-23 11:52] LABS: TOT PROT 6.3 g/dl (6.4-8.2)
[2023-10-24 06:38] VITALS: RESP 16
[2023-10-24] MEDS: methaDONE HCL 10 MG TABLET (FOR DETOX USE ONLY) PO ONE (09:30)
[2023-10-25 09:31] VITALS: BP 130/68; PULSE 80; TEMP 98.9
== END 2023-10-25 11:11 | disposition home or self-care (01) | DRG 773 ==
LOC: YASAS 13:23 → Y6N 16:39
PROVIDERS: ADMIT Neuromusculoskeletal Medicine & OMM; ATTEND Neuromusculoskeletal Medicine & OMM
PROC: HZ2ZZZZ Detoxification Services for Substance Abuse Treatment (ICD-10-PCS; principal; 2023-10-20)
DX: F11.23 Opioid dependence with withdrawal (principal); F10.230 Alcohol dependence with withdrawal, uncomplicated; F14.20 Cocaine dependence, uncomplicated; F17.210 Nicotine dependence, cigarettes, uncomplicated; E78.5 Hyperlipidemia, unspecified; I10 Essential (primary) hypertension; K21.9 Gastro-esophageal reflux disease without esophagitis; M16.11 Unilateral primary osteoarthritis, right hip; Z85.46 Personal history of malignant neoplasm of prostate; Z99.89 Dependence on other enabling machines and devices; Z86.73 Personal history of transient ischemic attack (TIA), and cerebral infarction without residual deficits
CPT/HCPCS: 36415; 80053; 80069; 80305; 85027; 86780